=== PATIENT | female | born 1935 | race Caucasian/White ===

== ENCOUNTER 2017-05-13 17:39 | Emergency (ER) | payer MEDICARE, OTHER ==
[2017-05-13 18:21] VITALS: BP 158/72
--- NOTE | 2017-05-13 18:50 | ERPHSYRPT ---
- History of Present Illness Source: patient, family Exam Limitations: no limitations Patient Subjective Stated Complaint: stated has had a persistent dry cough for last 3 to 4 days, clear nasal drng, started having chills last night. unsure if had a fever. decreased appetite Triage Nursing Assessment: Pt ambulated to triage room with steady gait. skin warm, dry, resp easy even with clear breath sounds. clear nasal drng noted. +2 bilat lower extrem edema. Timing/Duration: other (1 month) Cough Quality/Degree: dry cough Possible Cause: no prior episodes Modifying Factors: Improves With: coughing Associated Symptoms: fever, chills, cough, nasal congestion Hx Tetanus, Diphtheria Vaccination/Date Given: No Hx Influenza Vaccination/Date Given: No Hx Pneumococcal Vaccination/Date Given: No <RITU VIVAS - Last Filed: 05/13/17 19:01> <LILY KHOURY - Last Filed: 05/13/17 20:12> - History of Present Illness Time Seen by Provider: 05/13/17 18:42 Physician History: The patient is an 82-year-old female with her complaining of a cough for one month and clear nasal drainage with nasal congestion for one month. For the last 3 days she has had chills and decreased appetite. Her past medical history is significant for hypertension, GERD, and arthritis. (RITU VIVAS) Allergies/Adverse Reactions: No Known Drug Allergies Allergy (Verified 05/13/17 19:50) Home Medications: Meloxicam [Meloxicam] 15 mg PO DAILY 05/13/17 [History] Metoprolol Tartrate 25 mg [Lopressor 25MG Tab] 25 mg PO HS 05/13/17 [ History] Multivitamin/Iron/Folic Acid [Centrum Complete Multivit Tab] 1 each PO DAILY [History] Omeprazole [Omeprazole] 40 mg PO DAILY 05/13/17 [History] Potassium Chloride [Potassium Chloride] 40 meq PO DAILY 05/13/17 [History] Spironolactone 25 mg [Aldactone 25 MG] 25 mg PO HS 05/13/17 [History] - Review of Systems Constitutional: Fever, Chills Eyes: No Symptoms Ears, Nose, & Throat: Nose Congestion Respiratory: Cough Cardiac: No Chest Pain, No Edema, No Syncope Abdominal/Gastrointestinal: No Abdominal Pain, No Nausea, No Vomiting, No Diarrhea Genitourinary Symptoms: No Dysuria Musculoskeletal: No Back Pain, No Neck Pain Skin: No Rash Neurological: No Dizziness, No Focal Weakness, No Sensory Changes Psychological: No Symptoms Endocrine: No Symptoms Hematologic/Lymphatic: No Symptoms Immunological/Allergic: No Symptoms All Other Systems: Reviewed and Negative <RITU VIVAS - Last Filed: 05/13/17 19:01> - Past Medical History Pertinent Past Medical History: Yes Neurological History: TIA ENT History: No Pertinent History Cardiac History: No Pertinent History Respiratory History: Bronchitis Endocrine Medical History: No Pertinent History Musculoskeletal History: Arthritis GI Medical History: No Pertinent History History: No Pertinent History Psycho-Social History: No Pertinent History Female Reproductive Disorders: Breast Cancer - Past Surgical History Past Surgical History: Yes Neuro Surgical History: No Pertinent History Cardiac: No Pertinent History Respiratory: No Pertinent History Gastrointestinal: Other Genitourinary: No Pertinent History Musculoskeletal: No Pertinent History Female Surgical History: Mastectomy Other Surgical History: "bladder surgery" - Social History Smoking Status: Never smoker Exposure to second hand smoke: Yes (in the past) Drug Use: none Patient Lives Alone: No - Female History Hx Now: No <RITU VIVAS - Last Filed: 05/13/17 19:01> - Physical Exam General Appearance: mild distress Eye Exam: PERRL/EOMI, eyes nml inspection Ears, Nose, Throat Exam: normal ENT inspection, TMs normal, pharynx normal, moist mucous membranes Neck Exam: normal inspection, non-tender, supple, full range of motion Respiratory Exam: normal breath sounds, lungs clear, No respiratory distress Cardiovascular Exam: regular rate/rhythm, normal heart sounds Gastrointestinal/Abdomen Exam: soft, No tenderness Pelvic Exam: not done Rectal Exam: not done Back Exam: normal inspection, No CVA tenderness, No vertebral tenderness Extremity Exam: normal inspection, normal range of motion Neurologic Exam: alert, oriented x 3, cooperative, normal mood/affect, sensation nml, No motor deficits Skin Exam: normal color, warm, dry, No rash Lymphatic Exam: No adenopathy SpO2 Interpretation: normal SpO2: 99 Oxygen Delivery: Room Air <RITU VIVAS - Last Filed: 05/13/17 19:01> - Nursing Vital Signs Nursing Vital Signs: Initial Vital Signs Temperature 98.7 F 05/13/17 18:06 Pulse Rate 87 05/13/17 18:06 Respiratory Rate 20 05/13/17 18:06 Blood Pressure 158/72 05/13/17 18:06 O2 Sat by Pulse Oximetry 96 05/13/17 18:06 Pain Scale Pain Intensity 2 - Radiology Exams cxr X-ray Interpretation: Interpreted by me (kyphotic spine), No Fracture <LILY KHOURY - Last Filed: 05/13/17 20:12> Ordered Tests: Active Orders 24 hr Category Date Time Status IV Insertion STAT Care 05/13/17 18:54 Active CHEST 2 VIEWS (PA AND LAT) Stat Exams 05/13/17 18:54 Taken BLOOD CULTURE Stat Lab 05/13/17 19:35 Received CBC W DIFF Stat Lab 05/13/17 19:25 Completed CMP Stat Lab 05/13/17 19:25 Completed Lactic Acid Stat Lab 05/13/17 19:26 Completed MAGNESIUM Stat Lab 05/13/17 19:25 Completed UA W/RFX UR CULTURE Stat Lab 05/13/17 18:54 Ordered Respiratory Nebulizer STAT RT 05/13/17 19:49 Completed Medication Summary Discontinued Medications Generic Name Dose Route Start Last Admin Trade Name Freq PRN Reason Stop Dose Admin Albuterol Sulfate 2.5 mg 05/13/17 19:48 05/13/17 19:59 Proventil 2.5 Mg/3 Ml Neb IH 05/13/17 19:49 2.5 mg STAT ONE Administration Albuterol Sulfate Confirm 05/13/17 19:55 Proventil 2.5 Mg/3 Ml Neb Administered 05/13/17 19:56 Dose 2.5 mg IH .STK-MED ONE Lab/Rad Data: Laboratory Result Diagrams 05/13/17 19:25 05/13/17 19:25 Laboratory Results 05/13/17 05/13/17 05/13/17 Range/Units 19:30 19:26 19:25 WBC (4.0-10.5) K/mm3 RBC (4.1-5.4) M/mm3 Hgb (12.0-16.0) gm/dl Hct (35-47) % MCV (78-100) fl MCH (26-32) pg MCHC (32-36) g/dl RDW (11.5-14.0) % Plt Count (150-450) K/mm3 MPV (6-9.5) fl Gran % (36.0-66.0) % Lymphocytes % (24.0-44.0) % Monocytes % (0.0-12.0) % Eosinophils % (0.00-5.0) % Basophils % (0.0-0.4) % Basophils # (0-0.4) Sodium 133 L (136-145) mEq/L Potassium 4.1 (3.5-5.1) mEq/L Chloride 98 (98-107) mEq/L Carbon Dioxide 24.5 (21-32) mEq/L Anion Gap 14.9 (5-15) MEQ/L BUN 17 (9-20) mg/dL Creatinine 0.93 (0.55-1.30) mg/dl Estimated GFR > 60 ML/MIN Glucose 85 (70-110) MG/DL Lactic Acid 1.0 (0.4-2.0) Calcium 9.2 (8.5-10.1) mg/dL Magnesium 1.9 (1.8-2.4) mg/dL Total Bilirubin 0.40 (0.2-1.0) mg/dL AST 22 (15-37) U/L ALT 17 (12-78) U/L Alkaline Phosphatase 78 (46-116) U/L Serum Total Protein 7.4 (6.4-8.2) gm/dL Albumin 3.7 (3.4-5.0) g/dL Influenza Type A Ag NEGATIVE (NEGATIVE) Influenza Type B Ag NEGATIVE (NEGATIVE) 05/13/17 Range/Units 19:25 WBC 5.2 (4.0-10.5) K/mm3 RBC 4.18 (4.1-5.4) M/mm3 Hgb 12.4 (12.0-16.0) gm/dl Hct 37.8 (35-47) % MCV 90.4 (78-100) fl MCH 29.7 (26-32) pg MCHC 32.8 (32-36) g/dl RDW 12.5 (11.5-14.0) % Plt Count 170 (150-450) K/mm3 MPV 8.8 (6-9.5) fl Gran % 74.1 H (36.0-66.0) % Lymphocytes % 14.7 L (24.0-44.0) % Monocytes % 8.7 (0.0-12.0) % Eosinophils % 2.3 (0.00-5.0) % Basophils % 0.2 (0.0-0.4) % Basophils # 0.01 (0-0.4) Sodium (136-145) mEq/L Potassium (3.5-5.1) mEq/L Chloride (98-107) mEq/L Carbon Dioxide (21-32) mEq/L Anion Gap (5-15) MEQ/L BUN (9-20) mg/dL Creatinine (0.55-1.30) mg/dl Estimated GFR ML/MIN Glucose (70-110) MG/DL Lactic Acid (0.4-2.0) Calcium (8.5-10.1) mg/dL Magnesium (1.8-2.4) mg/dL Total Bilirubin (0.2-1.0) mg/dL AST (15-37) U/L ALT (12-78) U/L Alkaline Phosphatase (46-116) U/L Serum Total Protein (6.4-8.2) gm/dL Albumin (3.4-5.0) g/dL Influenza Type A Ag (NEGATIVE) Influenza Type B Ag (NEGATIVE) <RITU VIVAS - Last Filed: 05/13/17 19:01> - Progress Counseled pt/family regarding: lab results, diagnosis, need for follow-up <LILY KHOURY - Last Filed: 05/13/17 20:12> - Progress Progress Note: 05/13/17 18:53 Pt care discussed and care transferred to Dr Khoury at 19:00. (RITU VIVAS) 05/13/17 19:50 Pt was initially seen per Dr Vivas. She is a former pt of Dr Guillen. She has long standing rhinorrhea. She has cough for 2 days. No fever or chills. No dyspnea. No OGDEN. No chest pain. She tried OTC cold meds. PE: awake, alert. Chest clear without wheeze or rales. Cor reg. Abd soft and NT. O-P clear. CXR negative. 05/13/17 20:09 She was given a local doctor list as she plans to change FMD. Will Rx bronchitis. Rx alb MDI and doxycycline. (LILY KHOURY) <RITU VIVAS - Last Filed: 05/13/17 19:01> - Departure Time of Disposition: 20:10 Departure Disposition: Home Critical Care Time: No <LILY KHOURY - Last Filed: 05/13/17 20:12> - Departure Clinical Impression: Acute bronchitis Condition: Stable Referrals: JAKE PRIDE [Primary Care Provider] - Instructions: Cough -- Adult, Bronchitis Additional Instructions: Rx albuterol inhaler. Rx doxycycline. Follow up next week with a family doctor. Return for difficulty breathing, concerns. Prescriptions: Albuterol Sulfate [Albuterol Sulfate Hfa] 2 puff IH Q4-6HPRN PRN #1 [email or web address] PRN Reason: cough or wheeze Doxycycline Hyclate 100 mg [Vibramycin 100 MG] 1 tab PO BID #20 tab
[2017-05-13 19:43] LABS: BASOPHIL % 0.2 % (0.0-0.4); Basophil (Absolute #) 0.01 (0-0.4); Eosinophil % 2.3 % (0.00-5.0); Eosinophil (Absolute #) 0.12 (0-0.5); Granulocyte Absolute (ANC) 3.82 (1.4-6.9); Granulocytes % 74.1 % (36.0-66.0); Hematocrit 37.8 % (35-47); Hemoglobin 12.4 gm/dl (12.0-16.0); Lymphocyte (Absolute #) 0.76 (1.0-4.6); Lymphocytes % 14.7 % (24.0-44.0); Mean Cell Volume 90.4 fl (78-100); Mean Corpuscular Hemoglobin 29.7 pg (26-32); Mean Corpuscular Hgb Concent. 32.8 g/dl (32-36); Mean Platelet Volume 8.8 fl (6-9.5); Monocyte (Absolute #) 0.45 (0.0-1.3); Monocytes % 8.7 % (0.0-12.0); Platelet Count 170 K/mm3 (150-450); Red Blood Count 4.18 M/mm3 (4.1-5.4); Red Cell Distribution Width 12.5 % (11.5-14.0); White Blood Count 5.2 K/mm3 (4.0-10.5)
[2017-05-13] MEDS ORDERED: PROVENTIL 2.5 MG/3 ML NEB IH ONE ×2 (19:48→19:55)
[2017-05-13 20:06] LABS: ALBUMIN 3.7 g/dL (3.4-5.0); ALKALINE PHOSPHATASE 78 U/L (46-116); ANION GAP 14.9 MEQ/L (5-15); BLOOD UREA NITROGEN 17 mg/dL (9-20); CHLORIDE 98 mEq/L (98-107); Calcium 9.2 mg/dL (8.5-10.1); Carbon Dioxide 24.5 mEq/L (21-32); Creatinine 1 0.93 mg/dl (0.55-1.30); EST GLOMERULAR FILTRATION RATE > 60 ML/MIN; Glucose 85 MG/DL (70-110); MAGNESIUM 1.9 mg/dL (1.8-2.4); Potassium 4.1 mEq/L (3.5-5.1); SGOT/AST 22 U/L (15-37); SGPT/ALT 17 U/L (12-78); SODIUM 133 mEq/L (136-145); Total Protein 7.4 gm/dL (6.4-8.2)
[2017-05-13 20:07] LABS: INFLUENZA A NEGATIVE (NEGATIVE); INFLUENZA B NEGATIVE (NEGATIVE)
[2017-05-13 20:32] LABS: Appearance SLIGHTLY CLOUDY (CLEAR)
[2017-05-13 20:33] LABS: Bacteria MANY /HPF (NEGATIVE); Bilirubin NEGATIVE (NEGATIVE); Blood TRACE NON-HEM Ery/ul (0-5); Epithelial Cells FEW /HPF (FEW); Glucose NEGATIVE (NEGATIVE); Ketones NEGATIVE (NEGATIVE); Leukocyte Esterase 1+ (NEGATIVE); Nitrite POSITIVE (NEGATIVE); Protein,Urine Dip NEGATIVE (Negative); Urobilinogen NORMAL mg/dL (0-1); WBC 15-25 /HPF (0-5)
[2017-05-13 20:36] VITALS: PULSE 70; O2SAT 96
--- NOTE | 2017-05-14 09:09 | XRAY ---
Indication: Cough. Comparison: None PA/lateral chest hyperinflated and clear with incidental scattered calcified granulomas. Heart is not enlarged. Vascularity normal. Bony thorax intact with mild osteopenia and degenerative changes. Impression: Nonacute hyperinflated chest with chronic features.
== END 2017-05-13 20:37 | disposition home or self-care (01) ==
LOC: ED 17:39
DX: J20.9 Acute bronchitis, unspecified (principal); Z79.899 Other long term (current) drug therapy; M19.90 Unspecified osteoarthritis, unspecified site; Z86.73 Personal history of transient ischemic attack (TIA), and cerebral infarction without residual deficits; Z85.3 Personal history of malignant neoplasm of breast; I10 Essential (primary) hypertension; K21.9 Gastro-esophageal reflux disease without esophagitis
CPT/HCPCS: 36000; 36415; 71020; 80053; 81000; 83605; 83735; 85025; 87040; 87077; 87086; 87186; 87400; 94640; 99283; A9270-GY

== ENCOUNTER 2017-12-04 16:21 | Emergency (ER) | payer MEDICARE ==
--- NOTE | 2017-12-04 17:18 | ERPHSYRPT ---
- History of Present Illness Time Seen by Provider: 12/04/17 17:15 Source: patient, family Exam Limitations: no limitations Patient Subjective Stated Complaint: Pt states "I am having pain accross the lower part of my belly and it nevarez when I pee." Triage Nursing Assessment: Pt alert and oriented X 3, skin pwd PT ambulates with a hunched over slow gait. Pt able to speak in clear full sentences. Physician History: The patient is an 82-year-old female with her who complains of suprapubic cramping and burning when she urinates for 2 days. The cramping and pain across her lower abdomen has disappeared before arrival. Now she complains of continued burning with urination. Her past medical history is significant for hypertension, GERD, and asthma. Timing/Duration: day(s) (2), gradual onset, improved Activites at Onset: none Quality: burning (with urination) Pain Radiation: none Severity of Pain-Max: moderate Severity of Pain-Current: mild Prior abdominal problems: none Sexual intercourse history: non-contributory Modifying Factors: Improves With: urinating Associated Symptoms: dysuria Allergies/Adverse Reactions: No Known Drug Allergies Allergy (Verified 05/13/17 19:50) Home Medications: Meloxicam 15 mg PO DAILY 05/13/17 [History] Metoprolol Tartrate 25 mg [Lopressor 25MG Tab] 25 mg PO HS 05/13/17 [ History] Multivitamin/Iron/Folic Acid [Centrum Complete Multivit Tab] 1 each PO DAILY [History] Omeprazole 40 mg PO DAILY 05/13/17 [History] Potassium Chloride 40 meq PO DAILY 05/13/17 [History] Spironolactone 25 mg [Aldactone 25 MG] 25 mg PO HS 05/13/17 [History] Lisinopril 5 mg PO DAILY 12/04/17 [History] Hx Tetanus, Diphtheria Vaccination/Date Given: No Hx Influenza Vaccination/Date Given: No Hx Pneumococcal Vaccination/Date Given: No - Review of Systems Constitutional: No Fever, No Chills Eyes: No Symptoms Ears, Nose, & Throat: No Symptoms Respiratory: No Cough, No Dyspnea Cardiac: No Chest Pain, No Edema, No Syncope Abdominal/Gastrointestinal: Abdominal Pain Genitourinary Symptoms: Dysuria Musculoskeletal: No Back Pain, No Neck Pain Skin: No Rash Neurological: No Dizziness, No Focal Weakness, No Sensory Changes Psychological: No Symptoms Endocrine: No Symptoms Hematologic/Lymphatic: No Symptoms Immunological/Allergic: No Symptoms All Other Systems: Reviewed and Negative - Past Medical History Pertinent Past Medical History: Yes Neurological History: TIA ENT History: No Pertinent History Cardiac History: No Pertinent History Respiratory History: Bronchitis Endocrine Medical History: No Pertinent History Musculoskeletal History: Arthritis GI Medical History: No Pertinent History History: No Pertinent History Psycho-Social History: No Pertinent History Female Reproductive Disorders: Breast Cancer - Past Surgical History Past Surgical History: Yes Neuro Surgical History: No Pertinent History Cardiac: No Pertinent History Respiratory: No Pertinent History Gastrointestinal: Other Genitourinary: No Pertinent History Musculoskeletal: No Pertinent History Female Surgical History: Mastectomy Other Surgical History: "bladder surgery" - Social History Smoking Status: Never smoker Exposure to second hand smoke: Yes Drug Use: none Patient Lives Alone: No - Female History Hx Now: No - Nursing Vital Signs Nursing Vital Signs: Initial Vital Signs Temperature 97.8 F 12/04/17 16:28 Pulse Rate 78 12/04/17 16:28 Respiratory Rate 16 12/04/17 16:28 Blood Pressure 181/88 12/04/17 16:28 O2 Sat by Pulse Oximetry 98 12/04/17 16:28 Pain Scale Pain Intensity 0 - Physical Exam General Appearance: no apparent distress, alert Eye Exam: PERRL/EOMI, eyes nml inspection Ears, Nose, Throat Exam: normal ENT inspection, TMs normal, pharynx normal, moist mucous membranes Neck Exam: normal inspection, non-tender, supple, full range of motion Respiratory Exam: normal breath sounds, lungs clear, No respiratory distress Cardiovascular Exam: regular rate/rhythm, normal heart sounds, normal peripheral pulses Gastrointestinal/Abdomen Exam: soft, No tenderness, No mass Pelvic Exam: not done Rectal Exam: not done Back Exam: normal inspection, normal range of motion, No CVA tenderness, No vertebral tenderness Extremity Exam: normal inspection, normal range of motion, pelvis stable Neurologic Exam: alert, oriented x 3, cooperative, religious healer II-XII nml as tested, normal mood/affect, sensation nml, No motor deficits Skin Exam: normal color, warm, dry Lymphatic Exam: No adenopathy SpO2 Interpretation: normal SpO2: 98 Oxygen Delivery: Room Air Ordered Tests: Active Orders 24 hr Category Date Time Status EKG-ER Only STAT Care 12/04/17 17:25 Active IV Insertion STAT Care 12/04/17 17:18 Active AMYLASE Stat Lab 12/04/17 17:15 Completed BMP Stat Lab 12/04/17 17:15 Completed CBC W DIFF Stat Lab 12/04/17 17:15 Completed CULTURE,URINE Stat Lab 12/04/17 17:25 Received LIPASE Stat Lab 12/04/17 17:15 Completed UA W/ MICROSCOPIC Stat Lab 12/04/17 17:25 Completed Lab/Rad Data: Laboratory Result Diagrams 12/04/17 17:15 12/04/17 17:15 Laboratory Results 12/04/17 12/04/17 12/04/17 Range/Units 17:25 17:15 17:15 WBC 6.3 (4.0-10.5) K/mm3 RBC 4.40 (4.1-5.4) M/mm3 Hgb 13.2 (12.0-16.0) gm/dl Hct 38.9 (35-47) % MCV 88.4 (78-100) fl MCH 30.0 (26-32) pg MCHC 33.9 (32-36) g/dl RDW 13.7 (11.5-14.0) % Plt Count 229 (150-450) K/mm3 MPV 9.4 (6-9.5) fl Gran % 59.1 (36.0-66.0) % Eos # (Auto) 0.23 (0-0.5) Absolute Lymphs (auto) 1.84 (1.0-4.6) Absolute Monos (auto) 0.47 (0.0-1.3) Lymphocytes % 29.4 (24.0-44.0) % Monocytes % 7.5 (0.0-12.0) % Eosinophils % 3.7 (0.00-5.0) % Basophils % 0.3 (0.0-0.4) % Absolute Granulocytes 3.70 (1.4-6.9) Basophils # 0.02 (0-0.4) Sodium 137 (137-145) mmol/L Potassium 3.7 (3.5-5.1) mmol/L Chloride 103 (98-107) mmol/L Carbon Dioxide 26 (22-30) mmol/L Anion Gap 11.4 (5-15) MEQ/L BUN 16 (7-17) mg/dL Creatinine 0.70 (0.52-1.04) mg/dL Estimated GFR > 60.0 ML/MIN Glucose 93 (74-106) mg/dL Calcium 9.2 (8.4-10.2) mg/dL Amylase 48 (30-110) U/L Lipase 103 (23-300) U/L Ur Collection Type VOID Urine Color YELLOW (YELLOW) Urine Appearance CLOUDY (CLEAR) Urine pH 6.5 (5-6) Ur Specific [place] 1.015 (1.005-1.025) Urine Protein TRACE (Negative) Urine Ketones NEGATIVE (NEGATIVE) Urine Blood 250 (0-5) [place]/ul Urine Nitrite NEGATIVE (NEGATIVE) Urine Bilirubin NEGATIVE (NEGATIVE) Urine Urobilinogen NORMAL (0-1) mg/dL Ur Leukocyte Esterase 2+ (NEGATIVE) Urine Microscopic RBC 50-100 (0-2) /HPF Urine Microscopic WBC 15-25 (0-5) /HPF Ur Epithelial Cells FEW (FEW) /HPF Urine Bacteria FEW (NEGATIVE) /HPF Urine Culture Reflexed YES (NO) Urine Glucose NEGATIVE (NEGATIVE) mg/dL Specimen Received 12/04 1730 - Departure Time of Disposition: 19:07 Departure Disposition: Home Clinical Impression: UTI (urinary tract infection) Condition: Stable Critical Care Time: No Referrals: MARIE UREÑA MD [Primary Care Provider] - Prescriptions: Cephalexin Mh 500 mg [Keflex 500 mg] 1 cap PO QID #28 capsule
[2017-12-04 17:25] LABS: BASOPHIL % 0.3 % (0.0-0.4); Basophil (Absolute #) 0.02 (0-0.4); Eosinophil % 3.7 % (0.00-5.0); Eosinophil (Absolute #) 0.23 (0-0.5); Granulocytes % 59.1 % (36.0-66.0); Hematocrit 38.9 % (35-47); Hemoglobin 13.2 gm/dl (12.0-16.0); Lymphocyte (Absolute #) 1.84 (1.0-4.6); Lymphocytes % 29.4 % (24.0-44.0); Mean Cell Volume 88.4 fl (78-100); Mean Corpuscular Hgb Concent. 33.9 g/dl (32-36); Mean Platelet Volume 9.4 fl (6-9.5); Monocyte (Absolute #) 0.47 (0.0-1.3); Monocytes % 7.5 % (0.0-12.0); Platelet Count 229 K/mm3 (150-450); Red Cell Distribution Width 13.7 % (11.5-14.0); White Blood Count 6.3 K/mm3 (4.0-10.5)
[2017-12-04 17:58] LABS: AMYLASE 48 U/L (30-110); ANION GAP 11.4 MEQ/L (5-15); BLOOD UREA NITROGEN 16 mg/dL (7-17); CHLORIDE 103 mmol/L (98-107); Calcium 9.2 mg/dL (8.4-10.2); Carbon Dioxide 26 mmol/L (22-30); Glucose 93 mg/dL (74-106); LIPASE 103 U/L (23-300); Potassium 3.7 mmol/L (3.5-5.1); SODIUM 137 mmol/L (137-145)
[2017-12-04 17:58] LABS: Appearance CLOUDY (CLEAR); Leukocyte Esterase 2+ (NEGATIVE); Ph 6.5 (5-6); Specific Gravity 1.015 (1.005-1.025)
[2017-12-04 17:59] LABS: Bilirubin NEGATIVE (NEGATIVE); Blood 250 Ery/ul (0-5); Glucose NEGATIVE (NEGATIVE); Ketones NEGATIVE (NEGATIVE); Nitrite NEGATIVE (NEGATIVE); Protein,Urine Dip TRACE (Negative); RBC 50-100 /HPF (0-2); Urobilinogen NORMAL mg/dL (0-1); WBC 15-25 /HPF (0-5)
[2017-12-04 18:00] LABS: Bacteria FEW /HPF (NEGATIVE); Epithelial Cells FEW /HPF (FEW)
[2017-12-04] MEDS ORDERED: ROCEPHIN 1 Gm-D5w 50 ml Bag** 1 G/50 ML IVPB IV STA (19:07)
[2017-12-04] MEDS ORDERED: ROCEPHIN 1 Gm-D5w 50 ml Bag** 1 G/50 ML IVPB IV ONE (19:11)
[2017-12-04 19:25] VITALS: BP 182/84; PULSE 68; O2SAT 95
== END 2017-12-04 19:39 | disposition home or self-care (01) ==
LOC: ED 16:21
DX: N39.0 Urinary tract infection, site not specified (principal); Z79.899 Other long term (current) drug therapy
CPT/HCPCS: 36000; 36415; 80048; 81000; 82150; 83690; 85025; 87077; 87086; 87186; 93005; 96365; 99284; J0696

== ENCOUNTER 2019-01-16 16:39 | Emergency (ER) | payer MEDICARE, OTHER ==
[2019-01-16] MEDS ORDERED: Sodium Chloride 0.9% 1000 ML 1,000 ML IV STA ×2 (16:55→18:01)
[2019-01-16] MEDS ORDERED: BABY ASPIRIN 81 MG CHEW PO ONE (16:55)
[2019-01-16] MEDS ORDERED: Pepcid 20 MG VIAL IV ONE ×2 (16:58→17:21)
--- NOTE | 2019-01-16 17:00 | ERPHSYRPT ---
- History of Present Illness Historian: patient Exam Limitations: no limitations Physician History: Chest Pain in the substernal/lower sternal area for the past three days. Burning sensation without radiation Timing/Duration: day(s) (3) Activities at Onset: none Quality: burning Location: substernal, central Chest Pain Radiation: no radiation Severity of Pain-Max: severe Severity of Pain-Current: severe Modifying Factors: Improves With: nothing Associated Symptoms: heartburn, No nausea, No vomiting, No palpitations, No abdominal pain, No shortness of breath, No cough, No hurts to breathe, No diaphoresis, No chills, No fever, No fatigue, No weakness, No swelling/lump in chest, No syncope, No rash, No headache, No dizziness, No edema, No back pain Prior Chest Pain/Cardiac Workup: no prior chest pain Nitro Today/Relief: no nitro taken today Aspirin Treatment Today: no aspirin today Allergies/Adverse Reactions: No Known Drug Allergies Allergy (Verified 01/16/19 17:17) Home Medications: Meloxicam 15 mg PO DAILY 05/13/17 [History] Metoprolol Tartrate 25 mg [Lopressor 25MG Tab] 25 mg PO HS 05/13/17 [ History] Multivitamin/Iron/Folic Acid [Centrum Complete Multivit Tab] 1 each PO DAILY [History] Omeprazole 40 mg PO DAILY 05/13/17 [History] Potassium Chloride 40 meq PO DAILY 05/13/17 [History] Spironolactone 25 mg [Aldactone 25 MG] 25 mg PO HS 05/13/17 [History] Lisinopril 5 mg PO DAILY 12/04/17 [History] Hx Tetanus, Diphtheria Vaccination/Date Given: No Hx Influenza Vaccination/Date Given: No Hx Pneumococcal Vaccination/Date Given: No - Review of Systems Constitutional: No Fever, No Chills Eyes: No Symptoms Ears, Nose, & Throat: No Nose Congestion, No Nose Discharge, No Throat Pain Respiratory: No Cough, No Dyspnea Cardiac: Chest Pain, No Edema, No Syncope Abdominal/Gastrointestinal: No Abdominal Pain, No Nausea, No Vomiting, No Diarrhea, No Constipation, No Hematemesis, No Hematochezia, No Melena Genitourinary Symptoms: No Dysuria Musculoskeletal: No Back Pain, No Neck Pain Skin: No Rash Neurological: No Dizziness, No Focal Weakness, No Sensory Changes Psychological: No Symptoms Endocrine: No Symptoms All Other Systems: Reviewed and Negative - Past Medical History Pertinent Past Medical History: Yes Neurological History: TIA ENT History: No Pertinent History Cardiac History: No Pertinent History Respiratory History: Bronchitis Endocrine Medical History: No Pertinent History Musculoskeletal History: Arthritis GI Medical History: No Pertinent History History: No Pertinent History Psycho-Social History: No Pertinent History Female Reproductive Disorders: Breast Cancer - Past Surgical History Past Surgical History: Yes Neuro Surgical History: No Pertinent History Cardiac: No Pertinent History Respiratory: No Pertinent History Gastrointestinal: Other Genitourinary: No Pertinent History Musculoskeletal: No Pertinent History Female Surgical History: Mastectomy Other Surgical History: "bladder surgery" - Social History Smoking Status: Never smoker Exposure to second hand smoke: Yes Drug Use: none Patient Lives Alone: No - Nursing Vital Signs Nursing Vital Signs: Initial Vital Signs Temperature 97.8 F 01/16/19 16:56 Pulse Rate 74 01/16/19 16:56 Respiratory Rate 22 01/16/19 16:56 Blood Pressure 185/87 01/16/19 16:56 O2 Sat by Pulse Oximetry 100 01/16/19 16:56 Pain Scale Pain Intensity 0 - Physical Exam General Appearance: no apparent distress, alert Eye Exam: PERRL/EOMI, eyes nml inspection Ears, Nose, Throat Exam: normal ENT inspection, moist mucous membranes Neck Exam: normal inspection, non-tender, supple, full range of motion Respiratory Exam: normal breath sounds, lungs clear, No respiratory distress Cardiovascular Exam: regular rate/rhythm, normal heart sounds, normal peripheral pulses, edema, No friction rub Gastrointestinal/Abdomen Exam: soft, No tenderness, No mass, No rebound Back Exam: normal inspection, No CVA tenderness, No vertebral tenderness Extremity Exam: normal inspection, normal range of motion Neurologic Exam: alert, oriented x 3, cooperative, normal mood/affect, sensation nml, No motor deficits Skin Exam: normal color, warm, dry SpO2 Interpretation: normal O2 Delivery: Room Air - Course EKG Interpreted by Me: RATE, Sinus Rhythm, LAFB, Right Bundle Branch Block, NORMAL ST-T Rhythm Strip: Rate (74bpm; no acute change in comparison to EKG fromn 12/04/2017) , 1st degree block, Normal Sinus Rhythm - CT Exams Chest CT Interpretation: Negative, Other (Pre Radiologist Interpretation, hiatal hernia seen, but no pulmonary or cardiac abnormalities; no aneurysm) Abdomen/Pelvis CT Interpretation: Negative, No appendicitis, Other (Per Radiologist, no acute findings; no abdominal aneurysm, no signs of mucosal thickening of small or large bowel; positive hiatal hernia; colonic diverticulosis) - Radiology Ultrasound Exam Venous Lower Extremity Ultrasound: negative, Other (negative for DVT bilaterally) Ordered Tests: Active Orders 24 hr Category Date Time Status Paper Sales Representative STAT Care 01/16/19 16:55 Active EKG-ER Only STAT Care 01/16/19 16:55 Active IV Insertion STAT Care 01/16/19 16:55 Active Pulse Oximetry (ED) STAT Care 01/16/19 16:55 Active Re-Check Vital Signs STAT Care 01/16/19 16:55 Active ABDOMEN AND PELVIS W CONTRAST [CT] Stat Exams 01/16/19 17:59 Taken CHEST WITH CONTRAST [CT] Stat Exams 01/16/19 18:00 Taken VENOUS BILATERAL EXTREMITY [US] Stat Exams 01/16/19 16:57 Completed AMYLASE Stat Lab 01/16/19 17:00 Completed CBC W DIFF Stat Lab 01/16/19 16:55 Completed CK-Creatinine Phosphokinase Stat Lab 01/16/19 17:00 Completed CMP Stat Lab 01/16/19 17:00 Completed LIPASE Stat Lab 01/16/19 17:00 Completed MAGNESIUM Stat Lab 01/16/19 17:00 Completed NT PRO BNP Stat Lab 01/16/19 17:00 Completed PROTIME WITH INR Stat Lab 01/16/19 16:55 Completed PTT Stat Lab 01/16/19 16:55 Completed TROPONIN Q3H Lab 01/16/19 17:00 Completed TROPONIN Q3H Lab 01/16/19 20:14 Completed TROPONIN Q3H Lab 01/16/19 23:00 Ordered TROPONIN Q3H Lab 01/17/19 02:00 Ordered TROPONIN Q3H Lab 01/17/19 05:00 Ordered Urinalysis with Microscopy Stat Lab 01/16/19 20:03 Completed Medication Summary Discontinued Medications Generic Name Dose Route Start Last Admin Trade Name Freq PRN Reason Stop Dose Admin Al Hydrox/Mg Hydrox/Simethicone 20 ml 01/16/19 17:54 01/16/19 17:59 Maalox Es 30 Ml Unit Dose PO 01/16/19 17:55 20 ml STAT ONE Administration Al Hydrox/Mg Hydrox/Simethicone Confirm 01/16/19 17:57 Maalox Es 30 Ml Unit Dose Administered 01/16/19 17:58 Dose 30 ml .ROUTE .STK-MED ONE Aspirin 324 mg 01/16/19 16:55 01/16/19 17:31 Baby Aspirin 81 Mg Chew PO 01/16/19 16:56 324 mg STAT ONE Administration Aspirin Confirm 01/16/19 17:20 Baby Aspirin 81 Mg Chew Administered 01/16/19 17:21 Dose 324 mg .ROUTE .STK-MED ONE Cephalexin HCl 500 mg 01/16/19 20:55 Keflex 500 Mg PO 01/16/19 20:56 STAT ONE Famotidine 20 mg 01/16/19 16:58 01/16/19 17:29 Pepcid 20 Mg Vial IV 01/16/19 16:59 20 mg STAT ONE Administration Famotidine Confirm 01/16/19 17:21 Pepcid 20 Mg Vial Administered 01/16/19 17:22 Dose 20 mg IV .STK-MED ONE Sodium Chloride 1,000 mls @ 999 mls/hr 01/16/19 16:55 01/16/19 19:51 Sodium Chloride 0.9% 1000 Ml IV 01/16/19 17:55 Infused .Q1H1M STA Infusion Sodium Chloride Confirm 01/16/19 17:21 Sodium Chloride 0.9% 1000 Ml Administered 01/16/19 17:22 Dose 1,000 mls @ ud .ROUTE .STK-MED ONE Lab/Rad Data: Laboratory Result Diagrams 01/16/19 16:55 01/16/19 17:00 Laboratory Results 01/16/19 01/16/19 01/16/19 Range/Units 20:14 20:03 17:00 WBC (4.0-10.5) K/mm3 RBC (4.1-5.4) M/mm3 Hgb (12.0-16.0) gm/dl Hct (35-47) % MCV (78-100) fl MCH (26-32) pg MCHC (32-36) g/dl RDW (11.5-14.0) % Plt Count (150-450) K/mm3 MPV (6-9.5) fl Gran % (36.0-66.0) % Eos # (Auto) (0-0.5) Absolute Lymphs (auto) (1.0-4.6) Absolute Monos (auto) (0.0-1.3) Lymphocytes % (24.0-44.0) % Monocytes % (0.0-12.0) % Eosinophils % (0.00-5.0) % Basophils % (0.0-0.4) % Absolute Granulocytes (1.4-6.9) Basophils # (0-0.4) PT (9.95-12.35) SECONDS INR (0.8-3.0) APTT (25.3-37.0) SECONDS Sodium (137-145) mmol/L Potassium (3.5-5.1) mmol/L Chloride (98-107) mmol/L Carbon Dioxide (22-30) mmol/L Anion Gap (5-15) MEQ/L BUN (7-17) mg/dL Creatinine (0.52-1.04) mg/dL Estimated GFR ML/MIN Glucose (74-106) mg/dL Calcium (8.4-10.2) mg/dL Magnesium 1.6 (1.6-2.3) mg/dL Total Bilirubin (0.2-1.3) mg/dL AST (14-36) U/L ALT (0-35) U/L Alkaline Phosphatase (38-126) U/L Creatine Kinase (30-135) U/L Troponin I < 0.012 (0.000-0.034) ng/mL NT-Pro-B Natriuret Pep (0-1800) pg/mL Serum Total Protein (6.3-8.2) g/dL Albumin (3.5-5.0) g/dL Amylase (30-110) U/L Lipase (23-300) U/L Urine Color YELLOW (YELLOW) Urine Appearance CLOUDY (CLEAR) Urine pH 8.0 (5-6) Ur Specific Termo 1.017 (1.005-1.025) Urine Protein NEGATIVE (Negative) Urine Ketones NEGATIVE (NEGATIVE) Urine Blood SMALL (0-5) Benito/ul Urine Nitrite NEGATIVE (NEGATIVE) Urine Bilirubin NEGATIVE (NEGATIVE) Urine Urobilinogen NEGATIVE (0-1) mg/dL Ur Leukocyte Esterase LARGE (NEGATIVE) Urine WBC (Auto) >100 (0-5) /HPF Urine RBC (Auto) 11-15 (0-2) /HPF U Epithel Cells (Auto) NONE (FEW) /HPF Urine Bacteria (Auto) MODERATE (NEGATIVE) /HPF Urine Mucus (Auto) SLIGHT (NEGATIVE) /HPF Urine Glucose NEGATIVE (NEGATIVE) mg/dL 01/16/19 01/16/19 01/16/19 Range/Units 17:00 17:00 17:00 WBC (4.0-10.5) K/mm3 RBC (4.1-5.4) M/mm3 Hgb (12.0-16.0) gm/dl Hct (35-47) % MCV (78-100) fl MCH (26-32) pg MCHC (32-36) g/dl RDW (11.5-14.0) % Plt Count (150-450) K/mm3 MPV (6-9.5) fl Gran % (36.0-66.0) % Eos # (Auto) (0-0.5) Absolute Lymphs (auto) (1.0-4.6) Absolute Monos (auto) (0.0-1.3) Lymphocytes % (24.0-44.0) % Monocytes % (0.0-12.0) % Eosinophils % (0.00-5.0) % Basophils % (0.0-0.4) % Absolute Granulocytes (1.4-6.9) Basophils # (0-0.4) PT (9.95-12.35) SECONDS INR (0.8-3.0) APTT (25.3-37.0) SECONDS Sodium 139 (137-145) mmol/L Potassium 3.4 L (3.5-5.1) mmol/L Chloride 104 (98-107) mmol/L Carbon Dioxide 27 (22-30) mmol/L Anion Gap 12.4 (5-15) MEQ/L BUN 13 (7-17) mg/dL Creatinine 0.69 (0.52-1.04) mg/dL Estimated GFR > 60.0 ML/MIN Glucose 103 (74-106) mg/dL Calcium 10.2 (8.4-10.2) mg/dL Magnesium (1.6-2.3) mg/dL Total Bilirubin 0.40 (0.2-1.3) mg/dL AST 31 (14-36) U/L ALT 15 (0-35) U/L Alkaline Phosphatase 63 (38-126) U/L Creatine Kinase 30 (30-135) U/L Troponin I < 0.012 (0.000-0.034) ng/mL NT-Pro-B Natriuret Pep 262 (0-1800) pg/mL Serum Total Protein 7.7 (6.3-8.2) g/dL Albumin 4.1 (3.5-5.0) g/dL Amylase 70 (30-110) U/L Lipase 75 (23-300) U/L Urine Color (YELLOW) Urine Appearance (CLEAR) Urine pH (5-6) Ur Specific Termo (1.005-1.025) Urine Protein (Negative) Urine Ketones (NEGATIVE) Urine Blood (0-5) Benito/ul Urine Nitrite (NEGATIVE) Urine Bilirubin (NEGATIVE) Urine Urobilinogen (0-1) mg/dL Ur Leukocyte Esterase (NEGATIVE) Urine WBC (Auto) (0-5) /HPF Urine RBC (Auto) (0-2) /HPF U Epithel Cells (Auto) (FEW) /HPF Urine Bacteria (Auto) (NEGATIVE) /HPF Urine Mucus (Auto) (NEGATIVE) /HPF Urine Glucose (NEGATIVE) mg/dL 01/16/19 01/16/19 Range/Units 16:55 16:55 WBC 7.7 (4.0-10.5) K/mm3 RBC 4.26 (4.1-5.4) M/mm3 Hgb 12.7 (12.0-16.0) gm/dl Hct 38.1 (35-47) % MCV 89.4 (78-100) fl MCH 29.8 (26-32) pg MCHC 33.3 (32-36) g/dl RDW 13.3 (11.5-14.0) % Plt Count 224 (150-450) K/mm3 MPV 9.1 (6-9.5) fl Gran % 65.2 (36.0-66.0) % Eos # (Auto) 0.15 (0-0.5) Absolute Lymphs (auto) 1.99 (1.0-4.6) Absolute Monos (auto) 0.53 (0.0-1.3) Lymphocytes % 25.7 (24.0-44.0) % Monocytes % 6.9 (0.0-12.0) % Eosinophils % 1.9 (0.00-5.0) % Basophils % 0.3 (0.0-0.4) % Absolute Granulocytes 5.04 (1.4-6.9) Basophils # 0.02 (0-0.4) PT 13.4 H (9.95-12.35) SECONDS INR 1.18 (0.8-3.0) APTT 34.7 (25.3-37.0) SECONDS Sodium (137-145) mmol/L Potassium (3.5-5.1) mmol/L Chloride (98-107) mmol/L Carbon Dioxide (22-30) mmol/L Anion Gap (5-15) MEQ/L BUN (7-17) mg/dL Creatinine (0.52-1.04) mg/dL Estimated GFR ML/MIN Glucose (74-106) mg/dL Calcium (8.4-10.2) mg/dL Magnesium (1.6-2.3) mg/dL Total Bilirubin (0.2-1.3) mg/dL AST (14-36) U/L ALT (0-35) U/L Alkaline Phosphatase (38-126) U/L Creatine Kinase (30-135) U/L Troponin I (0.000-0.034) ng/mL NT-Pro-B Natriuret Pep (0-1800) pg/mL Serum Total Protein (6.3-8.2) g/dL Albumin (3.5-5.0) g/dL Amylase (30-110) U/L Lipase (23-300) U/L Urine Color (YELLOW) Urine Appearance (CLEAR) Urine pH (5-6) Ur Specific Termo (1.005-1.025) Urine Protein (Negative) Urine Ketones (NEGATIVE) Urine Blood (0-5) Benito/ul Urine Nitrite (NEGATIVE) Urine Bilirubin (NEGATIVE) Urine Urobilinogen (0-1) mg/dL Ur Leukocyte Esterase (NEGATIVE) Urine WBC (Auto) (0-5) /HPF Urine RBC (Auto) (0-2) /HPF U Epithel Cells (Auto) (FEW) /HPF Urine Bacteria (Auto) (NEGATIVE) /HPF Urine Mucus (Auto) (NEGATIVE) /HPF Urine Glucose (NEGATIVE) mg/dL - Progress Progress: unchanged Air Movement: good Progress Note: 01/16/19 17:45 Still had burning sensation in the chest/epigastric area after IV pepcid. Will order Maalox and perform CT Chest/Abd/Pelvis with IV contrast since no specific etiology found with labwork and EKG of her burning chest pain. 01/16/19 19:59 Pain has completely resolved. Patient denies any chest pain, abdominal pain, back pain. 01/16/19 20:58 Patient has no pain in chest, back or abdomen. No pain on repeat abdominal examination - Departure Departure Disposition: Home Clinical Impression: Chest pain due to GERD, Hypokalemia, Hiatal hernia with gastroesophageal reflux , Colon, diverticulosis Acute cystitis Qualifiers: Hematuria presence: without hematuria Qualified Code(s): N30.00 - Acute cystitis without hematuria Hypertension Qualifiers: Hypertension type: essential hypertension Qualified Code(s): I10 - Essential ( primary) hypertension Condition: Good Critical Care Time: No Referrals: MARIE UREÑA MD [Primary Care Provider] - Instructions: Chest Pain, Urinary Tract Infection, Adult (DC), Acid Reflux ( Gastroesophageal Reflux Disease), Adult (DC), Hypokalemia (DC), Hiatal Hernia ( DC), Diverticulosis (DC) Prescriptions: Cephalexin Mh 500 mg [Keflex 500 mg] 500 mg PO TID #15 capsule Omeprazole 20 mg PO QAM #10 capsule.
[2019-01-16] MEDS ORDERED: BABY ASPIRIN 81 MG CHEW ONE (17:20)
[2019-01-16] MEDS ORDERED: Sodium Chloride 0.9% 1000 ML 1,000 ML ONE (17:21)
[2019-01-16 17:30] LABS: BASOPHIL % 0.3 % (0.0-0.4); Basophil (Absolute #) 0.02 (0-0.4); Eosinophil % 1.9 % (0.00-5.0); Eosinophil (Absolute #) 0.15 (0-0.5); Granulocyte Absolute (ANC) 5.04 (1.4-6.9); Granulocytes % 65.2 % (36.0-66.0); Hematocrit 38.1 % (35-47); Hemoglobin 12.7 gm/dl (12.0-16.0); INR 1.18 (0.8-3.0); Lymphocyte (Absolute #) 1.99 (1.0-4.6); Lymphocytes % 25.7 % (24.0-44.0); Mean Cell Volume 89.4 fl (78-100); Mean Corpuscular Hemoglobin 29.8 pg (26-32); Mean Corpuscular Hgb Concent. 33.3 g/dl (32-36); Mean Platelet Volume 9.1 fl (6-9.5); Monocyte (Absolute #) 0.53 (0.0-1.3); Monocytes % 6.9 % (0.0-12.0); PROTIME 13.4 SECONDS (9.95-12.35); Platelet Count 224 K/mm3 (150-450); Red Blood Count 4.26 M/mm3 (4.1-5.4); Red Cell Distribution Width 13.3 % (11.5-14.0); White Blood Count 7.7 K/mm3 (4.0-10.5)
[2019-01-16 17:33] LABS: PTT 34.7 SECONDS (25.3-37.0)
[2019-01-16 17:33] LABS: AMYLASE 70 U/L (30-110); LIPASE 75 U/L (23-300)
[2019-01-16 17:43] LABS: ALBUMIN 4.1 g/dL (3.5-5.0); ALKALINE PHOSPHATASE 63 U/L (38-126); ANION GAP 12.4 MEQ/L (5-15); BLOOD UREA NITROGEN 13 mg/dL (7-17); CHLORIDE 104 mmol/L (98-107); CK-Creatinine Phosphokinase 30 U/L (30-135); Calcium 10.2 mg/dL (8.4-10.2); Carbon Dioxide 27 mmol/L (22-30); Creatinine 1 0.69 mg/dL (0.52-1.04); Glucose 103 mg/dL (74-106); NT PRO BNP 262 pg/mL (0-1800); Potassium 3.4 mmol/L (3.5-5.1); SGOT/AST 31 U/L (14-36); SGPT/ALT 15 U/L (0-35); SODIUM 139 mmol/L (137-145); Total Protein 7.7 g/dL (6.3-8.2)
[2019-01-16] MEDS ORDERED: MAALOX ES 30 ML UNIT DOSE PO ONE (17:54)
[2019-01-16] MEDS ORDERED: MAALOX ES 30 ML UNIT DOSE ONE (17:57)
[2019-01-16 20:17] LABS: Appearance CLOUDY (CLEAR); Bacteria MODERATE /HPF (NEGATIVE); Bilirubin NEGATIVE (NEGATIVE); Blood SMALL Ery/ul (0-5); Glucose NEGATIVE (NEGATIVE); Ketones NEGATIVE (NEGATIVE); Leukocyte Esterase LARGE (NEGATIVE); Mucus SLIGHT /HPF (NEGATIVE); Nitrite NEGATIVE (NEGATIVE); Protein,Urine Dip NEGATIVE (Negative); Specific Gravity 1.017 (1.005-1.025); Urobilinogen NEGATIVE mg/dL (0-1); WBC >100 /HPF (0-5)
--- NOTE | 2019-01-16 20:28 | XRAY ---
Indication: Right lower extremity pain and swelling. 2-dimensional sonogram and color Doppler imaging of the major venous vessels of the left and right leg was performed. Comparison: None No thrombus seen in the examined deep venous vessels of the left and right leg including greater saphenous veins. Veins demonstrate normal compressibility. Venous waveforms are normal with and without augmentation. Impression: Left and right legs negative for DVT. Comment: Preliminary report was given.
[2019-01-16] MEDS ORDERED: KEFLEX 500 MG PO ONE (20:55)
[2019-01-16] MEDS ORDERED: Klor Con 10 MEQ PO ONE ×2 (21:00→21:02)
[2019-01-16] MEDS ORDERED: KEFLEX 500 MG ONE (21:02)
[2019-01-16 21:07] VITALS: BP 178/79; PULSE 74; O2SAT 98
--- NOTE | 2019-01-17 08:44 | XRAY ---
Indication: Chest pain. Multiple contiguous axial images obtained through the chest using 80 cc Isovue 370 contrast. Comparison: None Lungs demonstrate mild bilateral dependent atelectasis. Minimal lingula and left lower lobe fibrosis/scarring. No suspicious pulmonary mass, infiltrate, or effusion. Heart is not enlarged. Aorta is normal in course and caliber. No pathologic mediastinal/hilar lymphadenopathy. Moderate-sized hiatal hernia with partial intrathoracic stomach. Bony thorax intact with osteopenia and mild degenerative changes throughout the spine. Incidental left mastectomy. CT abdomen/pelvis reported separately. Impression: 1. No acute cardiopulmonary abnormalities. 2. Incidental scattered atelectasis/fibrosis/scarring, and hiatal hernia. Comment: Preliminary interpretation was made by C. No critical discrepancy. CT DI 22.81
--- NOTE | 2019-01-17 08:52 | XRAY ---
Indication: Upper abdomen pain. Multiple contiguous axial images obtained through the abdomen and pelvis using 80 cc Isovue 370 contrast only. Comparison: None CT chest reported separately. Noncontrasted stomach and bowel loops appear nonobstructed. Appendix not seen. Scattered descending and sigmoid diverticulosis without diverticulitis. Previous cholecystectomy and hysterectomy. No free fluid/air. Normal visceral enhancement and renal excretion. 4 mm hepatic cyst and 3.2 cm left mid renal cyst. 5 mm nonobstructing right mid renal calculus. Posterior wall of the urinary bladder demonstrates irregular filling defects possibly debris versus bladder mass. Remaining liver, pancreas, spleen, adrenal glands, kidneys, and ureters appear unremarkable. Mild scattered aortoiliac calcifications. No AAA or pathologic retroperitoneal lymphadenopathy. Osseous structures intact with osteopenia and mild/moderate degenerative changes throughout the thoracolumbar spine including 6 mm L4 spondylolisthesis. Impression: 1. Colonic diverticulosis without diverticulitis. 2. Posterior urinary bladder irregular filling defects, possible debris. Urinary bladder mass not completely excluded. 3. Incidental hepatic/left renal cysts and nonobstructing right renal micro-calculus. 4. Osteopenia and multilevel degenerative spondylosis including grade 1-2 L4 spondylolisthesis. Comment: Preliminary interpretation was made by [facility] who does not report hepatic/renal cysts and urinary bladder finding. Telephone report given to Dr. Dale in the ER at 0847 hours on January 17, 2019. CT DI 22.81
== END 2019-01-16 21:49 | disposition home or self-care (01) ==
LOC: ED 16:39
DX: R07.89 Other chest pain (principal); K21.9 Gastro-esophageal reflux disease without esophagitis; E87.6 Hypokalemia; K44.9 Diaphragmatic hernia without obstruction or gangrene; K57.90 Diverticulosis of intestine, part unspecified, without perforation or abscess without bleeding; N30.00 Acute cystitis without hematuria; I10 Essential (primary) hypertension; Z79.899 Other long term (current) drug therapy
CPT/HCPCS: 36000; 36415; 71260; 74177; 80053; 81001; 82150; 82550; 83690; 83735; 83880; 84484; 85025; 85610; 85730; 87077; 87086; 87186; 93005; 93041; 93970; 94760; 96360; 96374; 99285; A9270-GY

== ENCOUNTER 2019-01-17 16:01 | Emergency (ER) | payer MEDICARE ==
[2019-01-17 16:30] VITALS: BP 167/93; PULSE 77; O2SAT 100
--- NOTE | 2019-01-17 19:19 | ERPHSYRPT ---
- History of Present Illness Patient Subjective Stated Complaint: right wrist swelling and painful, rates pain 10/10, denies injuring it Triage Nursing Assessment: Pt brought into the ER via a wheelchair, c/o of right wrist pain, denies injury, hypertensive, rates pain 10/10 Allergies/Adverse Reactions: No Known Drug Allergies Allergy (Verified 01/17/19 16:24) Home Medications: Meloxicam 15 mg PO DAILY 05/13/17 [History] Metoprolol Tartrate 25 mg [Lopressor 25MG Tab] 25 mg PO HS 05/13/17 [ History] Multivitamin/Iron/Folic Acid [Centrum Complete Multivit Tab] 1 each PO DAILY [History] Omeprazole 40 mg PO DAILY 05/13/17 [History] Potassium Chloride 40 meq PO DAILY 05/13/17 [History] Spironolactone 25 mg [Aldactone 25 MG] 25 mg PO HS 05/13/17 [History] Lisinopril 5 mg PO DAILY 12/04/17 [History] Hx Tetanus, Diphtheria Vaccination/Date Given: No Hx Influenza Vaccination/Date Given: No Hx Pneumococcal Vaccination/Date Given: No - Past Medical History Pertinent Past Medical History: Yes Neurological History: TIA ENT History: No Pertinent History Cardiac History: No Pertinent History Respiratory History: Bronchitis Endocrine Medical History: No Pertinent History Musculoskeletal History: Arthritis GI Medical History: No Pertinent History History: No Pertinent History Psycho-Social History: No Pertinent History Female Reproductive Disorders: Breast Cancer - Past Surgical History Past Surgical History: Yes Neuro Surgical History: No Pertinent History Cardiac: No Pertinent History Respiratory: No Pertinent History Gastrointestinal: Other Genitourinary: No Pertinent History Musculoskeletal: No Pertinent History Female Surgical History: Mastectomy Other Surgical History: "bladder surgery" - Social History Smoking Status: Never smoker Exposure to second hand smoke: No Drug Use: none Patient Lives Alone: No - Female History Hx Now: No - Nursing Vital Signs Nursing Vital Signs: Initial Vital Signs Temperature 97.7 F 01/17/19 16:09 Pulse Rate 77 01/17/19 16:09 Blood Pressure 167/93 01/17/19 16:09 O2 Sat by Pulse Oximetry 100 01/17/19 16:09 Pain Scale Pain Intensity 10 - Physical Exam SpO2: 100 Ordered Tests: Active Orders 24 hr Category Date Time Status WRIST (MIN 3 VIEWS) Stat Exams 01/17/19 17:26 Taken - Progress Progress: unchanged, pain not gone completely, re-examined Progress Note: 01/17/19 19:13 I came into ED and in order to help Dr. Dale i helped him by discharging pt. i did not perform h and p. i reviewed dr. bustamante's radiology report. no mention of acute fx. because pt had swelling and pain in distal ulna region, we have placed pt in a wrist splint. i also informed pt of finding on ct abd/pelvis performed last pm of thickened urinary bladder wall. pt is to follow up with pcp for further management of right wrist and urinary bladder wall issue. Counseled pt/family regarding: diagnosis, rad results - Departure Departure Disposition: Home Clinical Impression: Wrist pain Condition: Stable Critical Care Time: No Referrals: MARIE UREÑA MD [Primary Care Provider] - Additional Instructions: wear right wrist splint for comfort. use ice pack 3 times daily for pain control of right wrist pain. follow up with primary doctor for further management of both wrist pain and thickened urinary bladder issue found on yesterdays ct scan of abdomen and pelvis
--- NOTE | 2019-01-17 19:24 | ERPHSYRPT ---
- History of Present Illness Time Seen by Provider: 01/17/19 16:30 Source: patient Exam Limitations: no limitations Patient Subjective Stated Complaint: right wrist swelling and painful, rates pain 10/10, denies injuring it Triage Nursing Assessment: Pt brought into the ER via a wheelchair, c/o of right wrist pain, denies injury, hypertensive, rates pain 10/10 Physician History: Patient in with complaint of R wrist pain, swelling. Uncertain as to when started. Was seen last night for an unrelated problem; chart review of last night encounter by RN does not disclose any report of patient mentioningl the swelling in the right wrist. Occurred: other (unknown) Method of Injury: unknown Quality: other (patient reports the swelling mainly - more so than any injury to the wrist.) Severity of Pain-Max: none Severity of Pain-Current: none Allergies/Adverse Reactions: No Known Drug Allergies Allergy (Verified 01/19/19 02:49) Home Medications: Bumetanide 1 mg [Bumex 1 mg] 1 mg PO DAILY 01/19/19 [History] Lisinopril 10 mg [Zestril 10 MG] 10 mg PO DAILY 01/19/19 [History] Metolazone 2.5 mg [Zaroxolyn 2.5 MG] 2.5 mg PO DAILY 01/19/19 [History] Omeprazole 40 mg PO DAILY 01/19/19 [History] Hx Tetanus, Diphtheria Vaccination/Date Given: No Hx Influenza Vaccination/Date Given: No Hx Pneumococcal Vaccination/Date Given: No - Review of Systems Constitutional: No Symptoms Respiratory: No Symptoms Musculoskeletal: Joint Pain (R wrist - ulnar aspect of distal forearm) Skin: No Symptoms (No ecchymosis at affected area) All Other Systems: Reviewed and Negative - Past Medical History Pertinent Past Medical History: Yes Neurological History: TIA ENT History: No Pertinent History Cardiac History: No Pertinent History Respiratory History: Bronchitis Endocrine Medical History: No Pertinent History Musculoskeletal History: Arthritis GI Medical History: No Pertinent History History: No Pertinent History Psycho-Social History: No Pertinent History Female Reproductive Disorders: Breast Cancer - Past Surgical History Past Surgical History: Yes Neuro Surgical History: No Pertinent History Cardiac: No Pertinent History Respiratory: No Pertinent History Gastrointestinal: Other Genitourinary: No Pertinent History Musculoskeletal: No Pertinent History Female Surgical History: Mastectomy Other Surgical History: "bladder surgery" - Social History Smoking Status: Never smoker Exposure to second hand smoke: No Drug Use: none Patient Lives Alone: No - Female History Hx Now: No - Nursing Vital Signs Nursing Vital Signs: Initial Vital Signs Temperature 97.7 F 01/17/19 16:09 Pulse Rate 77 01/17/19 16:09 Blood Pressure 167/93 01/17/19 16:09 O2 Sat by Pulse Oximetry 100 01/17/19 16:09 Pain Scale Pain Intensity 0 - Physical Exam General Appearance: no apparent distress, alert Shoulder Exam: normal inspection, no evidence of injury, normal ROM Elbow/Forearm Exam: normal inspection, non-tender, no evidence of injury Wrist Exam: deformity (Swelling R distal ulnar aspect ), swelling (noted edema R distal ulna - no erythema), No ecchymosis Hand Exam: normal inspection, non-tender, no evidence of injury Neuro/Tendon Exam: normal sensation, normal motor functions Mental Status Exam: alert, oriented x 3 Skin Exam: normal color, warm, dry, No ecchymosis SpO2 Interpretation: normal SpO2: 100 O2 Delivery: Room Air - Course Nursing assessment & vital signs reviewed: Yes - Radiology Exams Wrist X-ray Interpretation: Interpreted by me (Suspect old FX distal ulna - does not appear to be new; RAD emaniead requested - no comment noted on their reading related to distal ulna/styloid process) - Departure Departure Disposition: Home Clinical Impression: Wrist pain Qualifiers: Laterality: right Qualified Code(s): M25.531 - Pain in right wrist Condition: Stable Critical Care Time: No Referrals: MARIE UREÑA MD [Primary Care Provider] - Instructions: Hand Pain (DC), Carpal Tunnel Exercises Additional Instructions: wear right wrist splint for comfort. use ice pack 3 times daily for pain control of right wrist pain. follow up with primary doctor for further management of both wrist pain and thickened urinary bladder issue found on yesterdays ct scan of abdomen and pelvis
--- NOTE | 2019-01-18 08:37 | XRAY ---
Indication: Ulnar side wrist pain. No known injury. Comparison: None 3 views of the right wrist demonstrates osteopenia, advanced 1st metacarpal trapezium degenerative changes, radioulnar carpal degenerative chondrocalcinosis, and old 5th metacarpal shaft fracture. No other bony, articular, or soft tissue abnormalities.
== END 2019-01-17 19:25 | disposition home or self-care (01) ==
LOC: ED 16:01
DX: M25.531 Pain in right wrist (principal)
CPT/HCPCS: 73110; 99283; L3908

== ENCOUNTER 2019-01-19 02:37 | Inpatient (IN) | payer MEDICARE ==
--- NOTE | 2019-01-19 03:13 | ERPHSYRPT ---
- History of Present Illness Time Seen by Provider: 01/19/19 02:55 Source: patient, family, EMS Exam Limitations: no limitations Patient Subjective Stated Complaint: pt reports she was unable to get off the toilet with assistance of her approx one hour ago. pt states she has a right hand/wrist that is sore. pt states she was able to use the restroom by herself all day but could not get up without help this morning. pt reports recent visits to this ED. Triage Nursing Assessment: pt is aox3, pupils perrl, pt speech is clear, answers questions appropriately, afebrile, resps easy and non labored, wrist splint in place to right lower extremity, cap refill < 3 seconds, sensation intact, pt skin pink warm dry. Physician History: Patient has been having progressively increasing weakness that culminated with patient being unable to get off the toilet by herself this morning prior to coming into the emergency department. Patient's states he can not help take care of her anymore at home by himself. Timing/Duration: day(s) (2) Severity: moderate Character of Deficits: general (difuse) Deficits: decrease ability to stand, decrease ability to walk Baseline/Normal Cognition: alert oriented x 3 Current Cognition: alert oriented x 3 Baseline Gait: walks w/o assistance Associated Symptoms: weakness, No confusion, No fatigue, No fever, No chills, No loss of consciousness, No nausea, No vomiting, No insomnia, No muscle spasms , No numbness/tingling in legs/feet, No paresthesia, No ringing in ears, No seizures, No slurred speech, No trouble walking, No vision changes, No chest pain, No headache Allergies/Adverse Reactions: No Known Drug Allergies Allergy (Verified 01/19/19 02:49) Home Medications: Meloxicam 15 mg PO DAILY 05/13/17 [History] Metoprolol Tartrate 25 mg [Lopressor 25MG Tab] 25 mg PO HS 05/13/17 [ History] Multivitamin/Iron/Folic Acid [Centrum Complete Multivit Tab] 1 each PO DAILY [History] Omeprazole 40 mg PO DAILY 05/13/17 [History] Potassium Chloride 40 meq PO DAILY 05/13/17 [History] Spironolactone 25 mg [Aldactone 25 MG] 25 mg PO HS 05/13/17 [History] Lisinopril 5 mg PO DAILY 12/04/17 [History] Hx Tetanus, Diphtheria Vaccination/Date Given: Yes Hx Influenza Vaccination/Date Given: Yes Hx Pneumococcal Vaccination/Date Given: Yes Immunizations Up to Date: Yes - Review of Systems Constitutional: Weakness, No Fever, No Chills Eyes: No Symptoms, No Eye Pain, No Vision Changes Ears, Nose, & Throat: No Symptoms, No Nose Congestion, No Throat Pain, No Painful Swallowing Respiratory: No Cough, No Dyspnea Cardiac: No Chest Pain, No Edema, No Syncope Abdominal/Gastrointestinal: No Abdominal Pain, No Nausea, No Vomiting, No Diarrhea Genitourinary Symptoms: No Dysuria, No Hematuria, No Flank Pain Musculoskeletal: Other ( states anywhere he touches her causes her pain) , No Back Pain, No Neck Pain Skin: No Rash Neurological: No Dizziness, No Focal Weakness, No Headache, No Sensory Changes, No Tremors Psychological: No Symptoms Endocrine: No Symptoms Hematologic/Lymphatic: No Easy Bleeding, No Easy Bruising All Other Systems: Reviewed and Negative - Past Medical History Pertinent Past Medical History: Yes Neurological History: TIA ENT History: No Pertinent History Cardiac History: No Pertinent History Respiratory History: Bronchitis Endocrine Medical History: No Pertinent History Musculoskeletal History: Arthritis GI Medical History: No Pertinent History History: No Pertinent History Psycho-Social History: No Pertinent History Female Reproductive Disorders: Breast Cancer - Past Surgical History Past Surgical History: Yes Neuro Surgical History: No Pertinent History Cardiac: No Pertinent History Respiratory: No Pertinent History Gastrointestinal: Other Genitourinary: No Pertinent History Musculoskeletal: No Pertinent History Female Surgical History: Mastectomy Other Surgical History: "bladder surgery" - Social History Smoking Status: Never smoker Exposure to second hand smoke: Yes Drug Use: none Patient Lives Alone: No - Female History Hx Now: No - Nursing Vital Signs Nursing Vital Signs: Initial Vital Signs Temperature 97.9 F 01/19/19 02:39 Pulse Rate 70 01/19/19 02:39 Respiratory Rate 20 01/19/19 02:39 Blood Pressure 202/94 01/19/19 02:39 O2 Sat by Pulse Oximetry 97 01/19/19 02:39 Pain Scale Pain Intensity 0 - [place] Coma Scale Best Eye Response ([place]): (4) open spontaneously Best Verbal Response ([place]): (5) oriented Best Motor Response ([place]): (6) obeys commands [place] Total: 15 - Physical Exam General Appearance: no apparent distress, alert Eye Exam: bilateral eye: PERRL, EOMI Ears, Nose, Throat Exam: normal ENT inspection, moist mucous membranes Neck Exam: normal inspection, non-tender, supple Respiratory: normal breath sounds, lungs clear, airway intact, No respiratory distress Cardiovascular: regular rate/rhythm, No edema Gastrointestinal: soft, No tenderness, No distention Back Exam: normal inspection, No CVA tenderness, No vertebral tenderness Extremity Exam: normal inspection, tenderness (at the right hand/wrist), No pedal edema Mental Status: alert, 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 Coordination/Gait: normal finger to nose, normal gait Skin Exam: normal color, warm, dry, No rash SpO2 Interpretation: normal SpO2: 97 O2 Delivery: Room Air - Course EKG Interpreted by Me: RATE (85), Sinus Rhythm (with 1st Degree A-V Block), LAFB , NORMAL INTERVALS, Right Bundle Branch Block, NORMAL ST-T, Other (no change in comparison to EKG from 01/16/2019) Ordered Tests: Active Orders 24 hr Category Date Time Status Diesel Engine Mechanic Apprentice STAT Care 01/19/19 03:05 Active EKG-ER Only STAT Care 01/19/19 03:04 Active IV Insertion STAT Care 01/19/19 03:04 Active CHEST 1 VIEW (PORTABLE) Stat Exams 01/19/19 03:05 Ordered HAND (MINIMUM 3 VIEWS) Stat Exams 01/19/19 03:08 Ordered CBC W DIFF Stat Lab 01/19/19 03:04 Completed CMP Stat Lab 01/19/19 03:04 Completed CULTURE,URINE Stat Lab 01/19/19 03:21 Received Lactic Acid Stat Lab 01/19/19 03:30 Completed MAGNESIUM Stat Lab 01/19/19 03:04 Completed NT PRO BNP Stat Lab 01/19/19 03:04 Completed PROTIME WITH INR Stat Lab 01/19/19 03:04 Completed PTT Stat Lab 01/19/19 03:04 Completed TROPONIN Q3H Lab 01/19/19 03:15 Completed TROPONIN Q3H Lab 01/19/19 06:15 Ordered TROPONIN Q3H Lab 01/19/19 09:15 Ordered TROPONIN Q3H Lab 01/19/19 12:15 Ordered TROPONIN Q3H Lab 01/19/19 15:15 Ordered UA W/RFX UR CULTURE Stat Lab 01/19/19 03:21 Completed VENOUS BLOOD GAS Stat Lab 01/19/19 03:30 Completed Medication Summary Discontinued Medications Generic Name Dose Route Start Last Admin Trade Name Geovannyq PRN Reason Stop Dose Admin Ceftriaxone Sodium/Dextrose 1 g in 50 mls @ 100 mls/hr 01/19/19 04:10 05:27 Rocephin 1 Gm-D5w 50 Ml Bag IV 01/19/19 04:39 Infused STAT STA Infusion Ceftriaxone Sodium/Dextrose Confirm 01/19/19 04:21 Rocephin 1 Gm-D5w 50 Ml Bag Administered 01/19/19 04:22 Dose 1 g in 50 mls @ ud IV .STK-MED ONE Labetalol HCl 10 mg 01/19/19 04:11 01/19/19 05:14 Trandate 100 Mg/20 Ml Mdv For Drip IV 01/19/19 04:12 Not Given ONCE ONE Labetalol HCl 10 mg 01/19/19 04:22 01/19/19 05:08 Trandate 20 Mg/5 Ml Syringe IV 01/19/19 04:23 10 mg STAT ONE Administration Labetalol HCl Confirm 01/19/19 05:07 Trandate 100 Mg/20 Ml Mdv For Drip Administered 01/19/19 05:08 Dose 100 mg IV .STK-MED ONE Potassium Chloride 40 meq 01/19/19 05:50 01/19/19 06:01 Klor Con 10 Meq PO 01/19/19 05:51 40 meq STAT ONE Administration Lab/Rad Data: Laboratory Result Diagrams 01/19/19 03:04 01/19/19 03:04 Laboratory Results 01/19/19 01/19/19 01/19/19 Range/Units 03:30 03:21 03:15 WBC (4.0-10.5) K/mm3 RBC (4.1-5.4) M/mm3 Hgb (12.0-16.0) gm/dl Hct (35-47) % MCV (78-100) fl MCH (26-32) pg MCHC (32-36) g/dl RDW (11.5-14.0) % Plt Count (150-450) K/mm3 MPV (6-9.5) fl Gran % (36.0-66.0) % Eos # (Auto) (0-0.5) Absolute Lymphs (auto) (1.0-4.6) Absolute Monos (auto) (0.0-1.3) Lymphocytes % (24.0-44.0) % Monocytes % (0.0-12.0) % Eosinophils % (0.00-5.0) % Basophils % (0.0-0.4) % Absolute Granulocytes (1.4-6.9) Basophils # (0-0.4) PT (9.95-12.35) SECONDS INR (0.8-3.0) APTT (25.3-37.0) SECONDS pO2/FiO2 Ratio 21.0 % VBG pH 7.50 H (7.32-7.42) VBG pCO2 at Pat Temp 25 L (42-55) mm/Hg VBG pO2 at Pat Temp 68 H (25-40) mm/Hg VBG HCO3 19.5 L (22-28) meq/L VBG O2 Sat (Emani) 97.3 (95-100) VBG Base Excess -2.1 L (-2.0-2.0) VBG Hemoglobin 13.8 VBG Carboxyhemoglobin 2.4 (0.0-6.9) % T HGB POC Potassium 3.1 L (3.5-5.1) Sodium (137-145) mmol/L Potassium (3.5-5.1) mmol/L Chloride (98-107) mmol/L Carbon Dioxide (22-30) mmol/L Anion Gap (5-15) MEQ/L BUN (7-17) mg/dL Creatinine (0.52-1.04) mg/dL Estimated GFR ML/MIN Glucose (74-106) mg/dL Lactic Acid 0.9 (0.4-2.0) Calcium (8.4-10.2) mg/dL Magnesium (1.6-2.3) mg/dL Total Bilirubin (0.2-1.3) mg/dL AST (14-36) U/L ALT (0-35) U/L Alkaline Phosphatase (38-126) U/L Troponin I 0.015 (0.000-0.034) ng/mL NT-Pro-B Natriuret Pep (0-1800) pg/mL Serum Total Protein (6.3-8.2) g/dL Albumin (3.5-5.0) g/dL Urine Color YELLOW (YELLOW) Urine Appearance CLOUDY (CLEAR) Urine pH 7.0 (5-6) Ur Specific [place] 1.012 (1.005-1.025) Urine Protein 100 (Negative) Urine Ketones MODERATE (NEGATIVE) Urine Blood SMALL (0-5) [place]/ul Urine Nitrite NEGATIVE (NEGATIVE) Urine Bilirubin NEGATIVE (NEGATIVE) Urine Urobilinogen NEGATIVE (0-1) mg/dL Ur Leukocyte Esterase LARGE (NEGATIVE) Urine WBC (Auto) >100 (0-5) /HPF Urine RBC (Auto) 6-10 (0-2) /HPF U Epithel Cells (Auto) RARE (FEW) /HPF Urine Bacteria (Auto) NONE (NEGATIVE) /HPF Urine Mucus (Auto) SLIGHT (NEGATIVE) /HPF Urine Culture Reflexed YES (NO) Urine Glucose NEGATIVE (NEGATIVE) mg/dL Slides for Path Review 01/19/19 01/19/19 01/19/19 Range/Units 03:04 03:04 03:04 WBC 9.7 (4.0-10.5) K/mm3 RBC 4.35 (4.1-5.4) M/mm3 Hgb 13.1 (12.0-16.0) gm/dl Hct 38.4 (35-47) % MCV 88.3 (78-100) fl MCH 30.1 (26-32) pg MCHC 34.1 (32-36) g/dl RDW 13.5 (11.5-14.0) % Plt Count 182 (150-450) K/mm3 MPV 9.0 (6-9.5) fl Gran % 78.4 H (36.0-66.0) % Eos # (Auto) 0.04 (0-0.5) Absolute Lymphs (auto) 1.37 (1.0-4.6) Absolute Monos (auto) 0.67 (0.0-1.3) Lymphocytes % 14.2 L (24.0-44.0) % Monocytes % 6.9 (0.0-12.0) % Eosinophils % 0.4 (0.00-5.0) % Basophils % 0.1 (0.0-0.4) % Absolute Granulocytes 7.57 H (1.4-6.9) Basophils # 0.01 (0-0.4) PT 14.4 H (9.95-12.35) SECONDS INR 1.27 (0.8-3.0) APTT 41.3 H (25.3-37.0) SECONDS pO2/FiO2 Ratio % VBG pH (7.32-7.42) VBG pCO2 at Pat Temp (42-55) mm/Hg VBG pO2 at Pat Temp (25-40) mm/Hg VBG HCO3 (22-28) meq/L VBG O2 Sat (Emani) (95-100) VBG Base Excess (-2.0-2.0) VBG Hemoglobin VBG Carboxyhemoglobin (0.0-6.9) % T HGB POC Potassium (3.5-5.1) Sodium 135 L (137-145) mmol/L Potassium 3.3 L (3.5-5.1) mmol/L Chloride 105 (98-107) mmol/L Carbon Dioxide 19 L (22-30) mmol/L Anion Gap 14.2 (5-15) MEQ/L BUN 12 (7-17) mg/dL Creatinine 0.56 (0.52-1.04) mg/dL Estimated GFR > 60.0 ML/MIN Glucose 121 H (74-106) mg/dL Lactic Acid (0.4-2.0) Calcium 9.5 (8.4-10.2) mg/dL Magnesium 1.7 (1.6-2.3) mg/dL Total Bilirubin 1.30 (0.2-1.3) mg/dL AST 27 (14-36) U/L ALT 14 (0-35) U/L Alkaline Phosphatase 75 (38-126) U/L Troponin I (0.000-0.034) ng/mL NT-Pro-B Natriuret Pep 1130 (0-1800) pg/mL Serum Total Protein 8.0 (6.3-8.2) g/dL Albumin 4.2 (3.5-5.0) g/dL Urine Color (YELLOW) Urine Appearance (CLEAR) Urine pH (5-6) Ur Specific [place] (1.005-1.025) Urine Protein (Negative) Urine Ketones (NEGATIVE) Urine Blood (0-5) [place]/ul Urine Nitrite (NEGATIVE) Urine Bilirubin (NEGATIVE) Urine Urobilinogen (0-1) mg/dL Ur Leukocyte Esterase (NEGATIVE) Urine WBC (Auto) (0-5) /HPF Urine RBC (Auto) (0-2) /HPF U Epithel Cells (Auto) (FEW) /HPF Urine Bacteria (Auto) (NEGATIVE) /HPF Urine Mucus (Auto) (NEGATIVE) /HPF Urine Culture Reflexed (NO) Urine Glucose (NEGATIVE) mg/dL Slides for Path Review NO - Progress Progress: unchanged Progress Note: 01/19/19 06:03 Discussed the case with Dr Ureña, hospitalist/patient's physician. Patient will be admitted to the hospital to Dr Ureña's service. Patient's blood pressure improved after IV medication. Discussed with .: Bhavya Will see patient in: hospital (full admit) Counseled pt/family regarding: lab results, diagnosis, need for follow-up, rad results - Departure Departure Disposition: Home, In-patient Admission Clinical Impression: Hypertensive urgency, Dehydration, Hypokalemia, Generalized weakness UTI (urinary tract infection) Qualifiers: Indwelling urinary catheter type: unspecified Encounter type: initial encounter Condition: Fair Critical Care Time: No Referrals: MARIE UREÑA MD [Primary Care Provider] -
[2019-01-19 03:39] LABS: BASOPHIL % 0.1 % (0.0-0.4); Basophil (Absolute #) 0.01 (0-0.4); Eosinophil % 0.4 % (0.00-5.0); Eosinophil (Absolute #) 0.04 (0-0.5); Granulocyte Absolute (ANC) 7.57 (1.4-6.9); Granulocytes % 78.4 % (36.0-66.0); Hematocrit 38.4 % (35-47); Hemoglobin 13.1 gm/dl (12.0-16.0); Lymphocyte (Absolute #) 1.37 (1.0-4.6); Lymphocytes % 14.2 % (24.0-44.0); Mean Cell Volume 88.3 fl (78-100); Mean Corpuscular Hemoglobin 30.1 pg (26-32); Mean Corpuscular Hgb Concent. 34.1 g/dl (32-36); Monocyte (Absolute #) 0.67 (0.0-1.3); Monocytes % 6.9 % (0.0-12.0); Platelet Count 182 K/mm3 (150-450); Red Blood Count 4.35 M/mm3 (4.1-5.4); Red Cell Distribution Width 13.5 % (11.5-14.0); White Blood Count 9.7 K/mm3 (4.0-10.5)
[2019-01-19 03:39] LABS: Lactic Acid 0.9 (0.4-2.0); VBG BASE EXCESS -2.1 (-2.0-2.0); VBG CARBOXYHEMOGLOBIN 2.4 % T HGB (0.0-6.9); VBG HCO3- 19.5 meq/L (22-28); VBG HEMOGLOBIN 13.8; VBG O2 SATURATION 97.3 (95-100); VBG POTASSIUM 3.1 (3.5-5.1); VBG pH 7.5 (7.32-7.42)
[2019-01-19 03:52] LABS: INR 1.27 (0.8-3.0); PROTIME 14.4 SECONDS (9.95-12.35)
[2019-01-19 03:54] LABS: PTT 41.3 SECONDS (25.3-37.0); Slide Review 1 NO
[2019-01-19 03:56] LABS: Appearance CLOUDY (CLEAR); Bilirubin NEGATIVE (NEGATIVE); Blood SMALL Ery/ul (0-5); Epithelial Cells RARE /HPF (FEW); Glucose NEGATIVE (NEGATIVE); Ketones MODERATE (NEGATIVE); Leukocyte Esterase LARGE (NEGATIVE); Mucus SLIGHT /HPF (NEGATIVE); Nitrite NEGATIVE (NEGATIVE); Protein,Urine Dip 100 (Negative); Specific Gravity 1.012 (1.005-1.025); Urobilinogen NEGATIVE mg/dL (0-1); WBC >100 /HPF (0-5)
[2019-01-19] MEDS ORDERED: ROCEPHIN 1 Gm-D5w 50 ml Bag** 1 G/50 ML IVPB IV STA (04:10)
[2019-01-19] MEDS ORDERED: TRANDATE 100 MG/20 ML MDV FOR DRIP IV ONE ×2 (04:11→05:07)
[2019-01-19] MEDS ORDERED: ROCEPHIN 1 Gm-D5w 50 ml Bag** 1 G/50 ML IVPB IV ONE (04:21)
[2019-01-19] MEDS ORDERED: TRANDATE 20 MG/5 ML SYRINGE IV ONE (04:22)
[2019-01-19 04:31] LABS: ALBUMIN 4.2 g/dL (3.5-5.0); ALKALINE PHOSPHATASE 75 U/L (38-126); ANION GAP 14.2 MEQ/L (5-15); BLOOD UREA NITROGEN 12 mg/dL (7-17); CHLORIDE 105 mmol/L (98-107); Calcium 9.5 mg/dL (8.4-10.2); Carbon Dioxide 19 mmol/L (22-30); Creatinine 1 0.56 mg/dL (0.52-1.04); Glucose 121 mg/dL (74-106); MAGNESIUM 1.7 mg/dL (1.6-2.3); NT PRO BNP 1130 pg/mL (0-1800); Potassium 3.3 mmol/L (3.5-5.1); SGOT/AST 27 U/L (14-36); SGPT/ALT 14 U/L (0-35); SODIUM 135 mmol/L (137-145)
[2019-01-19] MEDS ORDERED: Klor Con 10 MEQ PO ONE (05:50)
[2019-01-19] MEDS ORDERED: Colace 100 MG PO PRN (06:35)
[2019-01-19] MEDS ORDERED: TYLENOL 325 MG PO PRN (06:35)
[2019-01-19] MEDS: Sodium Chloride 0.9% 1000 ML 1,000 ML IV SCH ×2 (08:14→17:33)
--- NOTE | 2019-01-19 09:09 | XRAY ---
Indication: Weakness. Comparison: May 13, 2017. Portable chest demonstrates normal heart and lungs. Bony thorax intact again with mild osteopenia and degenerative changes. No new/acute findings.
--- NOTE | 2019-01-19 09:11 | XRAY ---
Indication: Pain. Comparison: None 3 views of the right hand demonstrates osteopenia, mild degenerative changes all IP joints, advanced degenerative changes base 1st metacarpal, moderate radioulnar carpal degenerative changes, and old 5th metacarpal fracture. No other bony, articular, or soft tissue abnormalities.
[2019-01-19] MEDS: ENOXAPARIN SODIUM SQ SCH (09:36)
[2019-01-19] MEDS: Pepcid 20 MG PO SCH ×2 (09:36→19:47)
--- NOTE | 2019-01-19 11:10 | PCM.HP ---
History of Present Illness - Chief Complaint Chief Complaint: c/o weakness and fall at home History of Present Illness: is a 83 year old female.Patient has been having progressively increasing weakness that culminated with patient being unable to get off the toilet by herself this morning prior to coming into the emergency department. Patient's states he can not help take care of her anymore at home by himself. Timing/Duration: day(s) (2) Severity: moderate Character of Deficits: general (difuse) Deficits: decrease ability to stand, decrease ability to walk Baseline/Normal Cognition: alert oriented x 3 Current Cognition: alert oriented x 3 Baseline Gait: walks w/o assistance Associated Symptoms: weakness, No confusion, No fatigue, No fever, No chills, No loss of consciousness, No nausea, No vomiting, No insomnia, No muscle spasms , No numbness/tingling in legs/feet, No paresthesia, No ringing in ears, No seizures, No slurred speech, No trouble walking, No vision changes, No chest pain, No headache - Review of Systems Constitutional: Weakness, No Fever, No Chills Eyes: No Symptoms Ears, Nose, & Throat: No Symptoms Respiratory: No Cough, No Short Of Breath Cardiac: No Chest Pain, No Edema, No Syncope Abdominal/Gastrointestinal: No Abdominal Pain, No Nausea, No Vomiting, No Diarrhea Genitourinary Symptoms: Dysuria, Frequency, Hesitancy, Urgency Musculoskeletal: Fall, No Back Pain, No Neck Pain Skin: No Rash Neurological: No Dizziness, No Focal Weakness, No Sensory Changes Psychological: No Symptoms Endocrine: No Symptoms Hematologic/Lymphatic: No Symptoms Immunological/Allergic: No Symptoms Medications & Allergies Home Medications: Home Medication List Bumetanide 1 mg [Bumex 1 mg] 1 mg PO DAILY 01/19/19 [History Confirmed 10/02] Lisinopril 10 mg [Zestril 10 MG] 10 mg PO DAILY 01/19/19 [History Confirmed 01/19/19] Metolazone 2.5 mg [Zaroxolyn 2.5 MG] 2.5 mg PO DAILY 01/19/19 [History Confirmed 01/19/19] Omeprazole 40 mg PO DAILY 01/19/19 [History Confirmed 01/19/19] Allergies/Adverse Reactions: Allergies Allergy/AdvReac Type Severity Reaction Status Date / Time No Known Drug Allergies Allergy Verified 01/19/19 02:49 - Past Medical History Past Medical History: Yes Neurological History: TIA ENT History: No Pertinent History Cardiac History: No Pertinent History Respiratory History: Bronchitis Endocrine Medical History: No Pertinent History Musculoskelatal History: Arthritis GI Medical History: No Pertinent History History: No Pertinent History Pyscho-Social History: No Pertinent History Reproductive Disorders: Breast Cancer Comment: Patient is a poor historian. - Female History Are you now?: No - Past Surgical History Past Surgical History: Yes Neuro Surgical History: No Pertinent History Cardiac History: No Pertinent History Respiratory Surgery: No Pertinent History GI Surgical History: Other Genitourinary Surgical Hx: No Pertinent History Musculskeletal Surgical Hx: No Pertinent History Female Surgical History: Mastectomy Other Surgical History: "bladder surgery". Pt is poor historian - Social History Smoking Status: Never smoker Exposure to second hand smoke: No Alcohol: None Drug Use: none - Physical Exam Vital Signs: Vital Signs - 24 hr Temp Pulse Resp BP Pulse Ox 01/19/19 08:00 93 L 01/19/19 07:37 98.7 F 83 18 180/82 94 L 01/19/19 06:35 98.7 F 83 18 180/82 94 L 01/19/19 06:10 81 18 154/75 100 01/19/19 06:07 97 01/19/19 05:40 80 19 151/72 99 01/19/19 04:50 85 20 193/87 96 01/19/19 04:00 86 20 190/116 97 01/19/19 03:00 90 22 211/107 99 01/19/19 02:39 97.9 F 70 20 202/94 97 General Appearance: mild distress, alert Neurologic Exam: alert, oriented x 3, cooperative, sensation nml, No motor deficits Eye Exam: PERRL/EOMI, eyes nml inspection Ears, Nose, Throat Exam: normal ENT inspection, TMs normal, pharynx normal, moist mucous membranes Neck Exam: normal inspection, non-tender, supple, full range of motion Respiratory Exam: normal breath sounds, lungs clear, No respiratory distress Cardiovascular Exam: regular rate/rhythm, normal heart sounds, normal peripheral pulses Gastrointestinal/Abdomen Exam: soft, normal bowel sounds, No tenderness, No mass Back Exam: normal inspection, decreased range of motion, No CVA tenderness, No vertebral tenderness Extremity Exam: normal inspection, normal range of motion, pelvis stable Skin Exam: normal color, warm, dry, No rash Lymphatic Exam: No adenopathy Results - Labs Lab/Micro Results: Lab Results-Last 24 Hours 01/19/19 01/19/19 01/19/19 Range/Units 03:04 03:04 03:04 WBC 9.7 (4.0-10.5) K/mm3 RBC 4.35 (4.1-5.4) M/mm3 Hgb 13.1 (12.0-16.0) gm/dl Hct 38.4 (35-47) % MCV 88.3 (78-100) fl MCH 30.1 (26-32) pg MCHC 34.1 (32-36) g/dl RDW 13.5 (11.5-14.0) % Plt Count 182 (150-450) K/mm3 MPV 9.0 (6-9.5) fl Gran % 78.4 H (36.0-66.0) % Eos # (Auto) 0.04 (0-0.5) Absolute Lymphs (auto) 1.37 (1.0-4.6) Absolute Monos (auto) 0.67 (0.0-1.3) Lymphocytes % 14.2 L (24.0-44.0) % Monocytes % 6.9 (0.0-12.0) % Eosinophils % 0.4 (0.00-5.0) % Basophils % 0.1 (0.0-0.4) % Absolute Granulocytes 7.57 H (1.4-6.9) Basophils # 0.01 (0-0.4) PT 14.4 H (9.95-12.35) SECONDS INR 1.27 (0.8-3.0) APTT 41.3 H (25.3-37.0) SECONDS pO2/FiO2 Ratio % VBG pH (7.32-7.42) VBG pCO2 at Pat Temp (42-55) mm/Hg VBG pO2 at Pat Temp (25-40) mm/Hg VBG HCO3 (22-28) meq/L VBG O2 Sat (Emani) (95-100) VBG Base Excess (-2.0-2.0) VBG Hemoglobin VBG Carboxyhemoglobin (0.0-6.9) % T HGB POC Potassium (3.5-5.1) Sodium 135 L (137-145) mmol/L Potassium 3.3 L (3.5-5.1) mmol/L Chloride 105 (98-107) mmol/L Carbon Dioxide 19 L (22-30) mmol/L Anion Gap 14.2 (5-15) MEQ/L BUN 12 (7-17) mg/dL Creatinine 0.56 (0.52-1.04) mg/dL Estimated GFR > 60.0 ML/MIN Glucose 121 H (74-106) mg/dL Lactic Acid (0.4-2.0) Calcium 9.5 (8.4-10.2) mg/dL Magnesium 1.7 (1.6-2.3) mg/dL Total Bilirubin 1.30 (0.2-1.3) mg/dL AST 27 (14-36) U/L ALT 14 (0-35) U/L Alkaline Phosphatase 75 (38-126) U/L Troponin I (0.000-0.034) ng/mL NT-Pro-B Natriuret Pep 1130 (0-1800) pg/mL Serum Total Protein 8.0 (6.3-8.2) g/dL Albumin 4.2 (3.5-5.0) g/dL Urine Color (YELLOW) Urine Appearance (CLEAR) Urine pH (5-6) Ur Specific [place] (1.005-1.025) Urine Protein (Negative) Urine Ketones (NEGATIVE) Urine Blood (0-5) [place]/ul Urine Nitrite (NEGATIVE) Urine Bilirubin (NEGATIVE) Urine Urobilinogen (0-1) mg/dL Ur Leukocyte Esterase (NEGATIVE) Urine WBC (Auto) (0-5) /HPF Urine RBC (Auto) (0-2) /HPF U Epithel Cells (Auto) (FEW) /HPF Urine Bacteria (Auto) (NEGATIVE) /HPF Urine Mucus (Auto) (NEGATIVE) /HPF Urine Culture Reflexed (NO) Urine Glucose (NEGATIVE) mg/dL Slides for Path Review NO 01/19/19 01/19/19 01/19/19 Range/Units 03:15 03:21 03:30 WBC (4.0-10.5) K/mm3 RBC (4.1-5.4) M/mm3 Hgb (12.0-16.0) gm/dl Hct (35-47) % MCV (78-100) fl MCH (26-32) pg MCHC (32-36) g/dl RDW (11.5-14.0) % Plt Count (150-450) K/mm3 MPV (6-9.5) fl Gran % (36.0-66.0) % Eos # (Auto) (0-0.5) Absolute Lymphs (auto) (1.0-4.6) Absolute Monos (auto) (0.0-1.3) Lymphocytes % (24.0-44.0) % Monocytes % (0.0-12.0) % Eosinophils % (0.00-5.0) % Basophils % (0.0-0.4) % Absolute Granulocytes (1.4-6.9) Basophils # (0-0.4) PT (9.95-12.35) SECONDS INR (0.8-3.0) APTT (25.3-37.0) SECONDS pO2/FiO2 Ratio 21.0 % VBG pH 7.50 H (7.32-7.42) VBG pCO2 at Pat Temp 25 L (42-55) mm/Hg VBG pO2 at Pat Temp 68 H (25-40) mm/Hg VBG HCO3 19.5 L (22-28) meq/L VBG O2 Sat (Emani) 97.3 (95-100) VBG Base Excess -2.1 L (-2.0-2.0) VBG Hemoglobin 13.8 VBG Carboxyhemoglobin 2.4 (0.0-6.9) % T HGB POC Potassium 3.1 L (3.5-5.1) Sodium (137-145) mmol/L Potassium (3.5-5.1) mmol/L Chloride (98-107) mmol/L Carbon Dioxide (22-30) mmol/L Anion Gap (5-15) MEQ/L BUN (7-17) mg/dL Creatinine (0.52-1.04) mg/dL Estimated GFR ML/MIN Glucose (74-106) mg/dL Lactic Acid 0.9 (0.4-2.0) Calcium (8.4-10.2) mg/dL Magnesium (1.6-2.3) mg/dL Total Bilirubin (0.2-1.3) mg/dL AST (14-36) U/L ALT (0-35) U/L Alkaline Phosphatase (38-126) U/L Troponin I 0.015 (0.000-0.034) ng/mL NT-Pro-B Natriuret Pep (0-1800) pg/mL Serum Total Protein (6.3-8.2) g/dL Albumin (3.5-5.0) g/dL Urine Color YELLOW (YELLOW) Urine Appearance CLOUDY (CLEAR) Urine pH 7.0 (5-6) Ur Specific [place] 1.012 (1.005-1.025) Urine Protein 100 (Negative) Urine Ketones MODERATE (NEGATIVE) Urine Blood SMALL (0-5) Benito/ul Urine Nitrite NEGATIVE (NEGATIVE) Urine Bilirubin NEGATIVE (NEGATIVE) Urine Urobilinogen NEGATIVE (0-1) mg/dL Ur Leukocyte Esterase LARGE (NEGATIVE) Urine WBC (Auto) >100 (0-5) /HPF Urine RBC (Auto) 6-10 (0-2) /HPF U Epithel Cells (Auto) RARE (FEW) /HPF Urine Bacteria (Auto) NONE (NEGATIVE) /HPF Urine Mucus (Auto) SLIGHT (NEGATIVE) /HPF Urine Culture Reflexed YES (NO) Urine Glucose NEGATIVE (NEGATIVE) mg/dL Slides for Path Review 01/19/19 01/19/19 Range/Units 06:24 09:15 WBC (4.0-10.5) K/mm3 RBC (4.1-5.4) M/mm3 Hgb (12.0-16.0) gm/dl Hct (35-47) % MCV (78-100) fl MCH (26-32) pg MCHC (32-36) g/dl RDW (11.5-14.0) % Plt Count (150-450) K/mm3 MPV (6-9.5) fl Gran % (36.0-66.0) % Eos # (Auto) (0-0.5) Absolute Lymphs (auto) (1.0-4.6) Absolute Monos (auto) (0.0-1.3) Lymphocytes % (24.0-44.0) % Monocytes % (0.0-12.0) % Eosinophils % (0.00-5.0) % Basophils % (0.0-0.4) % Absolute Granulocytes (1.4-6.9) Basophils # (0-0.4) PT (9.95-12.35) SECONDS INR (0.8-3.0) APTT (25.3-37.0) SECONDS pO2/FiO2 Ratio % VBG pH (7.32-7.42) VBG pCO2 at Pat Temp (42-55) mm/Hg VBG pO2 at Pat Temp (25-40) mm/Hg VBG HCO3 (22-28) meq/L VBG O2 Sat (Emani) (95-100) VBG Base Excess (-2.0-2.0) VBG Hemoglobin VBG Carboxyhemoglobin (0.0-6.9) % T HGB POC Potassium (3.5-5.1) Sodium (137-145) mmol/L Potassium (3.5-5.1) mmol/L Chloride (98-107) mmol/L Carbon Dioxide (22-30) mmol/L Anion Gap (5-15) MEQ/L BUN (7-17) mg/dL Creatinine (0.52-1.04) mg/dL Estimated GFR ML/MIN Glucose (74-106) mg/dL Lactic Acid (0.4-2.0) Calcium (8.4-10.2) mg/dL Magnesium (1.6-2.3) mg/dL Total Bilirubin (0.2-1.3) mg/dL AST (14-36) U/L ALT (0-35) U/L Alkaline Phosphatase (38-126) U/L Troponin I 0.014 0.014 (0.000-0.034) ng/mL NT-Pro-B Natriuret Pep (0-1800) pg/mL Serum Total Protein (6.3-8.2) g/dL Albumin (3.5-5.0) g/dL Urine Color (YELLOW) Urine Appearance (CLEAR) Urine pH (5-6) Ur Specific [place] (1.005-1.025) Urine Protein (Negative) Urine Ketones (NEGATIVE) Urine Blood (0-5) Benito/ul Urine Nitrite (NEGATIVE) Urine Bilirubin (NEGATIVE) Urine Urobilinogen (0-1) mg/dL Ur Leukocyte Esterase (NEGATIVE) Urine WBC (Auto) (0-5) /HPF Urine RBC (Auto) (0-2) /HPF U Epithel Cells (Auto) (FEW) /HPF Urine Bacteria (Auto) (NEGATIVE) /HPF Urine Mucus (Auto) (NEGATIVE) /HPF Urine Culture Reflexed (NO) Urine Glucose (NEGATIVE) mg/dL Slides for Path Review - Radiology Impressions Radiology Exams & Impressions: Radiology Procedures Category Date Time Status CHEST 1 VIEW (PORTABLE) Stat Exams 01/19/19 03:05 Completed HAND (MINIMUM 3 VIEWS) Stat Exams 01/19/19 03:08 Completed - Other Procedures and Tests Respiratory Therapy 01/19/19 06:35 EKG Assessment/Plan (1) Pyelonephritis Current Visit: Yes Status: Acute Assessment & Plan: start rocephin 1 gm q 24 Code(s): N12 - TUBULO-INTERSTITIAL NEPHRITIS, NOT SPCF ACUTE OR CHRONIC (2) Hypertensive urgency Current Visit: Yes Status: Acute Assessment & Plan: Last Vital Signs Temp 98.7 F 01/19/19 07:37 Pulse 83 01/19/19 07:37 Resp 18 01/19/19 07:37 BP 180/82 01/19/19 07:37 Pulse Ox 93 L 01/19/19 08:00 Allergies No Known Drug Allergies Allergy (Verified 01/19/19 02:49) Active Medications Acetaminophen (Tylenol 325 Mg) 325 mg PO Q4H PRN PRN PRN Reason: PAIN, FEVER, HEADACHE Stop: 02/18/19 06:34 Last Admin: 01/19/19 09:36 Dose: 325 mg Docusate Sodium (Colace 100 Mg) 100 mg PO BIDPRN PRN PRN Reason: CONSTIPATION Stop: 02/18/19 06:34 Enoxaparin Sodium (Enoxaparin Sodium) 40 mg SQ DAILY [place] Stop: 02/18/19 09:59 Last Admin: 01/19/19 09:36 Dose: 40 mg Famotidine (Pepcid 20 Mg) 20 mg PO BID [place] Stop: 02/18/19 09:59 Last Admin: 01/19/19 09:36 Dose: 20 mg Sodium Chloride (Sodium Chloride 0.9% 1000 Ml) 1,000 mls @ 100 mls/hr IV .Q10H [place] Stop: 02/18/19 06:34 Last Admin: 01/19/19 08:14 Dose: 100 mls/hr Intake & Output 01/18/19 01/19/19 11:59 11:59 Intake Total 240 Output Total 200 Balance 40 Weight 79.2 kg Orders 01/19/19 07:55 [employer] W[employer]ing [employer] Operator/Discharge Plan Lab Tests 01/19/19 01/19/19 01/19/19 03:04 03:04 03:04 WBC 9.7 RBC 4.35 Hgb 13.1 Hct 38.4 MCV 88.3 MCH 30.1 MCHC 34.1 RDW 13.5 Plt Count 182 MPV 9.0 Gran % 78.4 H Eos # (Auto) 0.04 Absolute Lymphs (auto) 1.37 Absolute Monos (auto) 0.67 Lymphocytes % 14.2 L Monocytes % 6.9 Eosinophils % 0.4 Basophils % 0.1 Absolute Granulocytes 7.57 H Basophils # 0.01 PT 14.4 H INR 1.27 APTT 41.3 H pO2/FiO2 Ratio VBG pH VBG pCO2 at Pat Temp VBG pO2 at Pat Temp VBG HCO3 VBG O2 Sat (Emani) VBG Base Excess VBG Hemoglobin VBG Carboxyhemoglobin POC Potassium Sodium 135 L Potassium 3.3 L Chloride 105 Carbon Dioxide 19 L Anion Gap 14.2 BUN 12 Creatinine 0.56 Estimated GFR > 60.0 Glucose 121 H Lactic Acid Calcium 9.5 Magnesium 1.7 Total Bilirubin 1.30 AST 27 ALT 14 Alkaline Phosphatase 75 Troponin I NT-Pro-B Natriuret Pep 1130 Serum Total Protein 8.0 Albumin 4.2 Urine Color Urine Appearance Urine pH Ur Specific [place] Urine Protein Urine Ketones Urine Blood Urine Nitrite Urine Bilirubin Urine Urobilinogen Ur Leukocyte Esterase Urine WBC (Auto) Urine RBC (Auto) U Epithel Cells (Auto) Urine Bacteria (Auto) Urine Mucus (Auto) Urine Culture Reflexed Urine Glucose Slides for Path Review NO 01/19/19 01/19/19 01/19/19 03:15 03:21 03:30 WBC RBC Hgb Hct MCV MCH MCHC RDW Plt Count MPV Gran % Eos # (Auto) Absolute Lymphs (auto) Absolute Monos (auto) Lymphocytes % Monocytes % Eosinophils % Basophils % Absolute Granulocytes Basophils # PT INR APTT pO2/FiO2 Ratio 21.0 VBG pH 7.50 H VBG pCO2 at Pat Temp 25 L VBG pO2 at Pat Temp 68 H VBG HCO3 19.5 L VBG O2 Sat (Emani) 97.3 VBG Base Excess -2.1 L VBG Hemoglobin 13.8 VBG Carboxyhemoglobin 2.4 POC Potassium 3.1 L Sodium Potassium Chloride Carbon Dioxide Anion Gap BUN Creatinine Estimated GFR Glucose Lactic Acid 0.9 Calcium Magnesium Total Bilirubin AST ALT Alkaline Phosphatase Troponin I 0.015 NT-Pro-B Natriuret Pep Serum Total Protein Albumin Urine Color YELLOW Urine Appearance CLOUDY Urine pH 7.0 Ur Specific [place] 1.012 Urine Protein 100 Urine Ketones MODERATE Urine Blood SMALL Urine Nitrite NEGATIVE Urine Bilirubin NEGATIVE Urine Urobilinogen NEGATIVE Ur Leukocyte Esterase LARGE Urine WBC (Auto) >100 Urine RBC (Auto) 6-10 U Epithel Cells (Auto) RARE Urine Bacteria (Auto) NONE Urine Mucus (Auto) SLIGHT Urine Culture Reflexed YES Urine Glucose NEGATIVE Slides for Path Review 01/19/19 01/19/19 06:24 09:15 WBC RBC Hgb Hct MCV MCH MCHC RDW Plt Count MPV Gran % Eos # (Auto) Absolute Lymphs (auto) Absolute Monos (auto) Lymphocytes % Monocytes % Eosinophils % Basophils % Absolute Granulocytes Basophils # PT INR APTT pO2/FiO2 Ratio VBG pH VBG pCO2 at Pat Temp VBG pO2 at Pat Temp VBG HCO3 VBG O2 Sat (Emani) VBG Base Excess VBG Hemoglobin VBG Carboxyhemoglobin POC Potassium Sodium Potassium Chloride Carbon Dioxide Anion Gap BUN Creatinine Estimated GFR Glucose Lactic Acid Calcium Magnesium Total Bilirubin AST ALT Alkaline Phosphatase Troponin I 0.014 0.014 NT-Pro-B Natriuret Pep Serum Total Protein Albumin Urine Color Urine Appearance Urine pH Ur Specific [place] Urine Protein Urine Ketones Urine Blood Urine Nitrite Urine Bilirubin Urine Urobilinogen Ur Leukocyte Esterase Urine WBC (Auto) Urine RBC (Auto) U Epithel Cells (Auto) Urine Bacteria (Auto) Urine Mucus (Auto) Urine Culture Reflexed Urine Glucose Slides for Path Review Code(s): I16.0 - HYPERTENSIVE URGENCY (3) Dehydration Current Visit: Yes Status: Acute Code(s): E86.0 - DEHYDRATION (4) UTI (urinary tract infection) Current Visit: Yes Status: Acute Qualifiers: Indwelling urinary catheter type: unspecified Encounter type: initial encounter Code(s): N39.0 - URINARY TRACT INFECTION, SITE NOT SPECIFIED (5) Hypokalemia Current Visit: Yes Status: Acute Code(s): E87.6 - HYPOKALEMIA (6) Generalized weakness Current Visit: Yes Status: Acute Code(s): R53.1 - WEAKNESS
[2019-01-19] MEDS: Protonix 40MG Tablet PO SCH (12:48)
[2019-01-19] MEDS: BUMEX 1 MG PO SCH (12:48)
[2019-01-19] MEDS: Zestril 10 MG PO SCH (12:48)
[2019-01-19] MEDS: Zaroxolyn 2.5 MG PO SCH (12:49)
[2019-01-19 15:36] LABS: BLOOD UREA NITROGEN 12 mg/dL (7-17); CHLORIDE 106 mmol/L (98-107); Carbon Dioxide 22 mmol/L (22-30); Creatinine 1 0.59 mg/dL (0.52-1.04); Glucose 96 mg/dL (74-106); Potassium 3.4 mmol/L (3.5-5.1); SODIUM 137 mmol/L (137-145)
[2019-01-19] MEDS: TYLENOL EXTRA STRENGTH 500 MG PO PRN (15:42)
[2019-01-20] MEDS: Sodium Chloride 0.9% 1000 ML 1,000 ML IV SCH (03:37)
[2019-01-20] MEDS: TYLENOL EXTRA STRENGTH 500 MG PO PRN (07:55)
[2019-01-20] MEDS ORDERED: NON-FORMULARY ITEM (Omeprazole [Omeprazole] 40 MG) PO SCH (10:00)
[2019-01-20] MEDS: Zaroxolyn 2.5 MG PO SCH (10:51)
[2019-01-20] MEDS: Pepcid 20 MG PO SCH ×2 (10:52→21:28)
[2019-01-20] MEDS: BUMEX 1 MG PO SCH (10:52)
[2019-01-20] MEDS: Protonix 40MG Tablet PO SCH (10:52)
[2019-01-20] MEDS: ENOXAPARIN SODIUM SQ SCH (10:53)
[2019-01-20] MEDS: Zestril 10 MG PO SCH (10:54)
[2019-01-20] MEDS: ROCEPHIN 1 Gm-D5w 50 ml Bag** 1 G/50 ML IVPB IV SCH (11:54)
--- NOTE | 2019-01-20 12:31 | PCM.NOTE ---
Date and Time: 01/20/19 1230 Subjective Assessment: doing ok - Review of Systems Constitutional: No Fever, No Chills Eyes: No Symptoms Ears, Nose, & Throat: No Symptoms Respiratory: No Cough, No Short Of Breath Cardiac: No Chest Pain, No Edema, No Syncope Abdominal/Gastrointestinal: No Abdominal Pain, No Nausea, No Vomiting, No Diarrhea Genitourinary Symptoms: No Dysuria Musculoskeletal: No Back Pain, No Neck Pain Skin: No Rash Neurological: No Dizziness, No Focal Weakness, No Sensory Changes Psychological: No Symptoms Endocrine: No Symptoms Hematologic/Lymphatic: No Symptoms Immunological/Allergic: No Symptoms Objective Exam General Appearance: no apparent distress, alert Neurologic Exam: alert, oriented x 3, cooperative, normal mood/affect, nml cerebellar function, sensation nml, No motor deficits Skin Exam: normal color, warm, dry Eye Exam: PERRL, EOMI, eyes nml inspection Ears, Nose, Throat Exam: normal ENT inspection, pharynx normal, moist mucous membranes Neck Exam: normal inspection, non-tender, supple, full range of motion Respiratory Exam: normal breath sounds, lungs clear, No respiratory distress Cardiovascular Exam: regular rate/rhythm, normal heart sounds Gastrointestinal/Abdomen Exam: soft, No tenderness, No mass Extremity Exam: normal inspection, normal range of motion Back Exam: normal inspection, normal range of motion, No CVA tenderness, No vertebral tenderness Pelvic Exam: deferred Rectal Exam: deferred OBJECTIVE DATA Vital Signs: Vital Signs - 24 hr Temp Pulse Resp BP Pulse Ox 01/20/19 08:00 98 01/20/19 07:46 97.4 F 75 16 137/65 98 01/20/19 03:41 98.4 F 76 18 142/64 95 01/19/19 23:48 98.1 F 73 18 180/79 95 01/19/19 20:00 98.0 F 82 16 112/57 95 01/19/19 16:00 97.5 F 73 18 143/70 95 Pain Assessment - Last Documented Pain Intensity 7 Pain Scale Used [facility] Intake and Output: Intake & Output 01/18/19 01/19/19 01/20/19 01/21/19 11:59 11:59 11:59 11:59 Intake Total 240 3442 Output Total 200 4200 Balance 40 -758 Weight 79.2 kg 79.2 kg Lab Results: Lab Results-Last 24 Hours 01/19/19 01/19/19 01/19/19 Range/Units 12:45 15:20 15:20 Sodium 137 (137-145) mmol/L Potassium 3.4 L (3.5-5.1) mmol/L Chloride 106 (98-107) mmol/L Carbon Dioxide 22 (22-30) mmol/L Anion Gap 13.0 (5-15) MEQ/L BUN 12 (7-17) mg/dL Creatinine 0.59 (0.52-1.04) mg/dL Estimated GFR > 60.0 ML/MIN Glucose 96 (74-106) mg/dL Uric Acid (2.6-6.0) mg/dL Calcium 9.0 (8.4-10.2) mg/dL Troponin I 0.013 0.014 (0.000-0.034) ng/mL 01/19/19 Range/Units Unknown Sodium (137-145) mmol/L Potassium (3.5-5.1) mmol/L Chloride (98-107) mmol/L Carbon Dioxide (22-30) mmol/L Anion Gap (5-15) MEQ/L BUN (7-17) mg/dL Creatinine (0.52-1.04) mg/dL Estimated GFR ML/MIN Glucose (74-106) mg/dL Uric Acid 4.1 (2.6-6.0) mg/dL Calcium (8.4-10.2) mg/dL Troponin I (0.000-0.034) ng/mL Radiology Exams: Radiology Procedures Category Date Time Status CHEST 1 VIEW (PORTABLE) Stat Exams 01/19/19 03:05 Completed HAND (MINIMUM 3 VIEWS) Stat Exams 01/19/19 03:08 Completed Multi-Disciplinary Progress Notes: Multi-Disciplinary Progress Notes 01/20/19 11:08 Case Management Note by Callie Madera PAPERWORK COMPLETE, FAXED COPY TO [facility], PLACED IN CHART. Initialized on 01/20/19 11:08 - END OF NOTE 01/20/19 10:59 Case Management Note by Callie Madera REFERRAL TO [facility], SPOKE WITH GRANT. Initialized on 01/20/19 10:59 - END OF NOTE 01/20/19 10:00 (created 01/20/19 10:56) Case Management Note by Callie Madera DISCUSSION WITH PT AND REGARDING NEEDS ON DISCHARGE. DISCUSSED DISCHARGE OPTIONS, HOME WITH [facility] VS REHAB STAY. PT IS ALERT THIS MORING. REPORTS THAT SHE KNOWS THAT SHE IS WEAK, AND FEELS THAT SHE COULD BENEFIT FROM SOME REHAB ON DISCHARGE. IN AGREEMENT, BUT ALSO, SAYS THAT HE CAN TAKE HER HOME. PT/ BOTH REQUEST REFERRAL TO [facility] FOR REHAB STAY ON DISCHARGE, REPORTS THAT THIS IS JUST A FEW BLOCKS FROM THEIR HOME. DENIES [facility] NEEDS FOR DISCHARGE. WILL FOLLOW. Initialized on 01/20/19 10:56 - END OF NOTE 01/19/19 14:57 Physical Therapy Note by Sandee Aguila PATIENT ABLE TO AMBULATE IN HALLWAY WITH [employer]-HELD MOD ASSIST +1 THIS AFTERNOON ( 150'+ X2). BETTER FUNCTIONAL MOBILITY WITH CUEING FOR WALKING AND TOILETING. REQUIRES HELP FOR SELF CARE IN TOILETING PROCESS. Initialized on 01/19/19 14:57 - END OF NOTE Assessment/Plan (1) Pyelonephritis Current Visit: Yes Status: Acute Assessment & Plan: improving Code(s): N12 - TUBULO-INTERSTITIAL NEPHRITIS, NOT SPCF ACUTE OR CHRONIC (2) Hypertensive urgency Current Visit: Yes Status: Resolved Code(s): I16.0 - HYPERTENSIVE URGENCY (3) Dehydration Current Visit: Yes Status: Acute Code(s): E86.0 - DEHYDRATION (4) UTI (urinary tract infection) Current Visit: Yes Status: Acute Qualifiers: Indwelling urinary catheter type: unspecified Encounter type: initial encounter Code(s): N39.0 - URINARY TRACT INFECTION, SITE NOT SPECIFIED (5) Hypokalemia Current Visit: Yes Status: Acute Code(s): E87.6 - HYPOKALEMIA (6) Generalized weakness Current Visit: Yes Status: Acute Code(s): R53.1 - WEAKNESS
[2019-01-21 06:29] LABS: BASOPHIL % 0.3 % (0.0-0.4); Basophil (Absolute #) 0.02 (0-0.4); Eosinophil % 2.8 % (0.00-5.0); Eosinophil (Absolute #) 0.18 (0-0.5); Granulocyte Absolute (ANC) 3.61 (1.4-6.9); Hematocrit 35.8 % (35-47); Hemoglobin 12.4 gm/dl (12.0-16.0); Lymphocyte (Absolute #) 2.06 (1.0-4.6); Lymphocytes % 31.9 % (24.0-44.0); Mean Cell Volume 89.1 fl (78-100); Mean Corpuscular Hemoglobin 30.8 pg (26-32); Mean Corpuscular Hgb Concent. 34.6 g/dl (32-36); Mean Platelet Volume 9.7 fl (6-9.5); Monocyte (Absolute #) 0.58 (0.0-1.3); Platelet Count 207 K/mm3 (150-450); Red Blood Count 4.02 M/mm3 (4.1-5.4); Red Cell Distribution Width 13.4 % (11.5-14.0); White Blood Count 6.5 K/mm3 (4.0-10.5)
[2019-01-21] MEDS: Protonix 40MG Tablet PO SCH (09:29)
[2019-01-21] MEDS: Pepcid 20 MG PO SCH ×2 (09:29→20:41)
[2019-01-21] MEDS: Zaroxolyn 2.5 MG PO SCH (09:29)
[2019-01-21] MEDS: ENOXAPARIN SODIUM SQ SCH (09:30)
[2019-01-21] MEDS: BUMEX 1 MG PO SCH (09:30)
[2019-01-21] MEDS: Zestril 10 MG PO SCH (09:30)
[2019-01-21] MEDS: ROCEPHIN 1 Gm-D5w 50 ml Bag** 1 G/50 ML IVPB IV SCH (09:30)
[2019-01-21] MEDS: TYLENOL EXTRA STRENGTH 500 MG PO PRN (10:23)
--- NOTE | 2019-01-21 12:59 | PCM.NOTE ---
Date and Time: 01/21/19 1250 Subjective Assessment: 83 yr old female seen and examined this am. Patient reports that she is feeling tired this am. She reports that she feels that she is being given too much food for her meals and would like to cut back on the amount because she is a slow eater. She understands that she will be going to [place] tomorrow due to weakness and deconditioning. - Review of Systems Constitutional: Other (Fatigue) Eyes: No Double Vision Respiratory: No Short Of Breath Cardiac: No Edema Abdominal/Gastrointestinal: Constipation (Wanted a stool softner), No Nausea, No Vomiting, No Diarrhea Genitourinary Symptoms: Other (occasional urinary incontinence) Musculoskeletal: Joint Pain (R wrist joint) Skin: No Cellulitis Neurological: No Dizziness Objective Exam General Appearance: no apparent distress, alert, anxiety Neurologic Exam: alert, oriented x 3, cooperative Skin Exam: normal color, warm, dry Eye Exam: eyes nml inspection Ears, Nose, Throat Exam: moist mucous membranes Respiratory Exam: normal breath sounds, lungs clear Cardiovascular Exam: regular rate/rhythm Gastrointestinal/Abdomen Exam: soft, normal bowel sounds, No tenderness, No distention Extremity Exam: deformities (R wrist deformity) OBJECTIVE DATA Vital Signs: Vital Signs - 24 hr Temp Pulse Resp BP Pulse Ox 01/21/19 12:00 98.2 F 70 18 114/57 95 01/21/19 07:30 97.9 F 92 H 18 120/58 95 01/21/19 04:00 97.9 F 77 19 150/68 96 01/21/19 00:00 98.1 F 93 H 17 131/67 98 01/20/19 20:00 97.9 F 92 H 18 119/59 96 01/20/19 16:00 98.3 F 75 18 122/71 95 Pain Assessment - Last Documented Pain Intensity 0 Pain Scale Used [facility] Intake and Output: Intake & Output 01/19/19 01/20/19 01/21/19 01/22/19 11:59 11:59 11:59 11:59 Intake Total 240 3442 1700 Output Total 200 4200 1377 Balance 40 -758 323 Weight 79.2 kg 79.2 kg Lab Results: Lab Results-Last 24 Hours 01/21/19 Range/Units 05:56 WBC 6.5 (4.0-10.5) K/mm3 RBC 4.02 L (4.1-5.4) M/mm3 Hgb 12.4 (12.0-16.0) gm/dl Hct 35.8 (35-47) % MCV 89.1 (78-100) fl MCH 30.8 (26-32) pg MCHC 34.6 (32-36) g/dl RDW 13.4 (11.5-14.0) % Plt Count 207 (150-450) K/mm3 MPV 9.7 H (6-9.5) fl Gran % 56.0 (36.0-66.0) % Eos # (Auto) 0.18 (0-0.5) Absolute Lymphs (auto) 2.06 (1.0-4.6) Absolute Monos (auto) 0.58 (0.0-1.3) Lymphocytes % 31.9 (24.0-44.0) % Monocytes % 9.0 (0.0-12.0) % Eosinophils % 2.8 (0.00-5.0) % Basophils % 0.3 (0.0-0.4) % Absolute Granulocytes 3.61 (1.4-6.9) Basophils # 0.02 (0-0.4) Multi-Disciplinary Progress Notes: Multi-Disciplinary Progress Notes 01/20/19 15:52 Physical Therapy Note by Jaclyn Dickerson PT. CONFUSED SOMEWHAT TO EVENTS. HAS CHAIR ALARM IN PLACE D/T FALL RISK. NO C/O PN. CONT. W/ NOTABLE EDEMA/DEFORMITY. PT. REPORTS COCK-UP SPLINT SHE HAS FOR R WRIST IS PNFUL AND SHE WOULD RATHER NOT WEAR IT. PT. PERFORMED SIT TO STAND W/ MIN ASSIST - DOES REPORT SOME R KNEE DISCOMFORT W/ FIRST STEPS. AMBULATED 70' W/ MIN ASSIST - HAND HELD L UE D/T R WRIST DISCOMFORT LIMITING A.D. USE WELL COGNITIVE LIMITATIONS. PT. SHOULD CONT. P.T. IN SNF UPON D/ C YO MAXIMIZE FUNCTIONAL INDEPENDENCE. JACLYN DICKERSON PT Initialized on 01/20/19 15:52 - END OF NOTE Assessment/Plan (1) Generalized weakness Current Visit: Yes Status: Acute Assessment & Plan: Patient feels tired today and is having generalized weakness. This potentially could be related to deconditioning. Plan for patient to go to [place] tomorrow if she remains stable. Code(s): R53.1 - WEAKNESS (2) Hypokalemia Current Visit: Yes Status: Acute Assessment & Plan: Patient's bmp showed potassium of 3.4 on admission. Repeat BMP ordered for am. Code(s): E87.6 - HYPOKALEMIA (3) Pyelonephritis Current Visit: Yes Status: Resolved Assessment & Plan: Patient was admitted for pyelonephritis. Patient has received Rocephin antibiotic therapy for pyelo. Patient has been afebrile and has been urinating without issue. She wears a depends and does not currently have bustos catheter Code(s): N12 - TUBULO-INTERSTITIAL NEPHRITIS, NOT SPCF ACUTE OR CHRONIC (4) UTI (urinary tract infection) Current Visit: Yes Status: Acute Qualifiers: Indwelling urinary catheter type: unspecified Assessment & Plan: See same plan for pyelo Code(s): N39.0 - URINARY TRACT INFECTION, SITE NOT SPECIFIED (5) Hypertensive urgency Current Visit: Yes Status: Acute Assessment & Plan: Patient's blood pressures have been well controlled during hospital admission. Will continue on home medications for HTN Code(s): I16.0 - HYPERTENSIVE URGENCY
[2019-01-21 15:03] LABS: ANION GAP 15.1 MEQ/L (5-15); Calcium 9.4 mg/dL (8.4-10.2); Creatinine 1 1.15 mg/dL (0.52-1.04)
[2019-01-21 15:05] LABS: Potassium 2.8 mmol/L (3.5-5.1)
[2019-01-21] MEDS ORDERED: POTASSIUM CHLORIDE 20 mEq IN WATER 100ML 20 MEQ/100 ML BAG IV SCH (15:15)
[2019-01-21] MEDS ORDERED: POTASSIUM CHLORIDE 20 mEq IN WATER 100ML 0 ML IV ONE (15:25)
[2019-01-21] MEDS ORDERED: Klor Con 10 MEQ PO ONE ×2 (16:13→20:40)
[2019-01-22 06:29] LABS: ANION GAP 10.2 MEQ/L (5-15); Calcium 8.8 mg/dL (8.4-10.2); Creatinine 1 1.05 mg/dL (0.52-1.04); Potassium 3.3 mmol/L (3.5-5.1)
[2019-01-22 08:19] VITALS: O2SAT 95
[2019-01-22] MEDS: TYLENOL EXTRA STRENGTH 500 MG PO PRN (10:23)
--- NOTE | 2019-01-22 10:27 | PCM.DS ---
Discharge Summary Date of Admission: 01/19/19 06:34 Date of Discharge: 01/22/2019 Admitting Physician: MARIE UREÑA Primary Care Provider: MARIE UREÑA Allergies Allergies No Known Drug Allergies Allergy (Verified 01/19/19 02:49) Hospital Summary - Hospital Course Hospital Course: is a 83 year old female.Patient has been having progressively increasing weakness that culminated with patient being unable to get off the toilet by herself due to hand pain prior to going to the emergency department. Patient's states he can not help take care of her anymore at home by himself. Patient upon evaluation in ER was admitted for Hypertensive urgency, Dehydration, Hypokalemia, Generalized weakness and R hand pain. Xrays in ER showed degenerative changes. Patient was admitted inpatient was started on IV fluids for dehydration. She received potassium repletion as well. She received antibiotics for UTI. She was also treated for hypertensive urgency. Her blood pressures have been within normal limits. Patient has continue to have hypokalemia and will need to take daily potassium 10 meq PO daily upon discharge and will need repeat BMP in a few days. Patient's symptoms have improved since hospital admission and patient will be able to be discharged to assisted today. - Vitals & Intake/Output Vital Signs: Vital Signs Temperature 98.1 F 01/22/19 08:00 Pulse Rate 75 01/22/19 08:00 Respiratory Rate 18 01/22/19 08:00 Blood Pressure 119/57 01/22/19 08:00 O2 Sat by Pulse Oximetry 95 01/22/19 08:00 Intake & Output: Intake & Output 01/19/19 01/20/19 01/21/19 01/22/19 11:59 11:59 11:59 11:59 Intake Total 240 3442 1700 1340 Output Total 200 4200 1377 100 Balance 40 587 455 0836 Weight 79.2 kg 79.2 kg - Lab Result Diagrams: 01/21/19 05:56 01/22/19 05:22 Lab Results-Last 24 Hrs: Lab Results-Last 24 Hours 01/21/19 01/22/19 Range/Units 14:14 05:22 Sodium 136 L 136 L (137-145) mmol/L Potassium 2.8 L* 3.3 L (3.5-5.1) mmol/L Chloride 96 L 102 (98-107) mmol/L Carbon Dioxide 28 27 (22-30) mmol/L Anion Gap 15.1 H 10.2 (5-15) MEQ/L BUN 21 H 26 H (7-17) mg/dL Creatinine 1.15 H 1.05 H (0.52-1.04) mg/dL Estimated GFR 47.9 53.2 ML/MIN Glucose 108 H 92 (74-106) mg/dL Calcium 9.4 8.8 (8.4-10.2) mg/dL Micro Results-Entire Visit: Microbiology 01/19/19 03:21 Urine Culture - Final Clean Catch Midstream Escherichia Coli - Procedures and Test Procedures and Tests throughout Hospitalization: Therapy Orders & Screens 01/19/19 06:35 OT Eval and Treat ( Order) ROUTINE Comment: Consulting Provider: Physician Instructions: Reason For Exam: PT Eval & Treat ( Order) ROUTINE Reason for Eval:: Generalized Weakness Diagnosis: Generalized Weakness EKG Comment: Discharge Exam General Appearance: no apparent distress, anxiety (Patient does not want to be at the [facility] without her ) Neurologic Exam: alert, cooperative, normal mood/affect, confusion Eye Exam: eyes nml inspection Ears, Nose, Throat Exam: moist mucous membranes Neck Exam: normal inspection Respiratory Exam: normal breath sounds, lungs clear Cardiovascular Exam: regular rate/rhythm, normal heart sounds Gastrointestinal/Abdomen Exam: soft, normal bowel sounds, No tenderness, No distention Extremity Exam: pedal edema, other (Bilateral wrist deformities) Skin Exam: normal color, warm, dry Final Diagnosis/Problem List - Final Discharge Diagnosis/Problem (1) Generalized weakness Current Visit: Yes Status: Chronic Assessment & Plan: Patient was having difficulties with some ADLs including strength to get off of the toilet without assistance. Her is unable to care for her at home and would like her to be taken care of at the [facility]. Patient's strength has improved minimally at the hospital and she will likely require PT and OT for improved strength. Code(s): R53.1 - WEAKNESS (2) Hypokalemia Current Visit: Yes Status: Chronic Assessment & Plan: Patient's potassium has trended down and then up. She reports being on potassium supplements at home and states that she ran out of her pills. Patient will need to be on potassium as an outpatient and will need to get repeat labs to eval potassium level. Code(s): E87.6 - HYPOKALEMIA (3) UTI (urinary tract infection) Current Visit: Yes Status: Acute Assessment & Plan: Patient has received x3 doses of rocephin which should have completed her treatment course. Patient's culture grew [id number] cfu of ecoli sensitive to antibiotic tx patient received. Will have NH monitor VS for fever or dysuria and other associated symptoms of UTI Code(s): N39.0 - URINARY TRACT INFECTION, SITE NOT SPECIFIED (4) Hypertensive urgency Current Visit: Yes Status: Acute Assessment & Plan: Patient's bp has been wnl. Will continue to monitor BP as outpatient and tx as necessary. Patient will continue on routine home meds. Code(s): I16.0 - HYPERTENSIVE URGENCY - Discharge Disposition: DC TO ANY "OTHER" [facility] Condition: Stable Prescriptions: New Potassium Chloride 10 Meq Tab* [Klor Con 10 MEQ] 10 meq PO DAILY #30 tab Continue Omeprazole 40 mg PO DAILY Metolazone 2.5 mg [Zaroxolyn 2.5 MG] 2.5 mg PO DAILY Lisinopril 10 mg [Zestril 10 MG] 10 mg PO DAILY Bumetanide 1 mg [Bumex 1 mg] 1 mg PO DAILY Additional Instructions: Patient will need to have a BMP on 01/24/2019 to eval potassium level Follow up with: EFRAIN CONNER [COURTESY STAFF] - 1 Week
[2019-01-22] MEDS: BUMEX 1 MG PO SCH (10:28)
[2019-01-22] MEDS: Zestril 10 MG PO SCH (10:28)
[2019-01-22] MEDS: Protonix 40MG Tablet PO SCH (10:28)
[2019-01-22] MEDS: Pepcid 20 MG PO SCH (10:28)
[2019-01-22] MEDS: ENOXAPARIN SODIUM SQ SCH (10:28)
[2019-01-22] MEDS: Zaroxolyn 2.5 MG PO SCH (10:28)
[2019-01-22] MEDS: ROCEPHIN 1 Gm-D5w 50 ml Bag** 1 G/50 ML IVPB IV SCH (10:28)
[2019-01-22] MEDS ORDERED: Klor Con 10 MEQ PO SCH (11:24)
[2019-01-22 13:03] VITALS: BP 103/54; PULSE 70
[2019-01-23] MEDS ORDERED: Klor Con 10 MEQ PO SCH (10:00)
== END 2019-01-22 13:20 | DRG 948 ==
LOC: ED 02:37 → MED SURG 06:34
PROVIDERS: ADMIT General Practice; ATTEND General Practice
DX: R53.1 Weakness (principal); N39.0 Urinary tract infection, site not specified; I16.0 Hypertensive urgency; E86.0 Dehydration; E87.6 Hypokalemia; M79.641 Pain in right hand; Z79.899 Other long term (current) drug therapy; K59.00 Constipation, unspecified
CPT/HCPCS: 36000; 36415; 71045; 73130; 80048; 80053; 81001; 82805; 83605; 83735; 83880; 84484; 84550; 85025; 85610; 85730; 87077; 87086; 87186; 93005; 93041; 96365; 96374; 99284; 99285; J0696; J1650; J3480; A9270-GY

== ENCOUNTER 2019-11-21 19:13 | Emergency (ER) | payer MEDICARE, OTHER ==
--- NOTE | 2019-11-21 19:40 | ERPHSYRPT ---
- History of Present Illness Time Seen by Provider: 11/21/19 19:40 Source: patient Exam Limitations: no limitations Physician History: This is an 84-year-old white female who presents with pain in the buttock after a fall 3 days ago. Patient fell directly onto her buttock. She wants to be sure there is there is not any broken bones present. Patient has not taken anything for her pain she states. There are no other areas of aches or pains. Patient is able to stand and ambulate but it hurts to do so Occurred: days ago (3) Reason for Fall: unknown Loss of Consciousness: no loss of consciousness Quality: aching Severity of Pain-Max: moderate Severity of Pain-Current: moderate Modifying Factors: Improves With: movement Associated Symptoms (Fall): denies symptoms Allergies/Adverse Reactions: No Known Drug Allergies Allergy (Verified 11/21/19 19:50) Home Medications: Bumetanide 1 mg [Bumex 1 mg] 1 mg PO DAILY 01/19/19 [History] Lisinopril 10 mg [Zestril 10 MG] 10 mg PO DAILY 01/19/19 [History] Metolazone 2.5 mg [Zaroxolyn 2.5 MG] 2.5 mg PO DAILY 01/19/19 [History] Omeprazole 40 mg PO DAILY 01/19/19 [History] Hx Tetanus, Diphtheria Vaccination/Date Given: Yes Hx Influenza Vaccination/Date Given: Yes Hx Pneumococcal Vaccination/Date Given: Yes Travel Risk - International Travel Have you traveled outside of the country in past 3 weeks: No - Coronavirus Screening Are you exhibiting any of the following symptoms?: No Close contact with a COVID-19 positive Pt in past 14-21 Days: No - Review of Systems Constitutional: No Symptoms Eyes: No Symptoms Ears, Nose, & Throat: No Symptoms Respiratory: No Symptoms Cardiac: No Symptoms Abdominal/Gastrointestinal: No Symptoms Genitourinary Symptoms: No Symptoms Musculoskeletal: Fall, Other (Buttock pain) Skin: No Symptoms Neurological: No Symptoms Psychological: No Symptoms Endocrine: No Symptoms Hematologic/Lymphatic: No Symptoms Immunological/Allergic: No Symptoms All Other Systems: Reviewed and Negative - Past Medical History Pertinent Past Medical History: Yes Neurological History: TIA ENT History: No Pertinent History Cardiac History: No Pertinent History Respiratory History: Bronchitis Endocrine Medical History: No Pertinent History Musculoskeletal History: Arthritis GI Medical History: No Pertinent History History: No Pertinent History Psycho-Social History: No Pertinent History Female Reproductive Disorders: Breast Cancer Other Medical History: Patient is a poor historian. - Past Surgical History Past Surgical History: Yes Neuro Surgical History: No Pertinent History Cardiac: No Pertinent History Respiratory: No Pertinent History Gastrointestinal: Other Genitourinary: No Pertinent History Musculoskeletal: No Pertinent History Female Surgical History: Mastectomy Other Surgical History: "bladder surgery". Pt is poor historian - Social History Smoking Status: Never smoker Exposure to second hand smoke: No Drug Use: none Patient Lives Alone: No - Nursing Vital Signs Nursing Vital Signs: Initial Vital Signs Temperature 97.6 F 11/21/19 19:43 Pulse Rate 74 11/21/19 19:43 Respiratory Rate 16 11/21/19 19:43 Blood Pressure 177/77 11/21/19 19:43 O2 Sat by Pulse Oximetry 99 11/21/19 19:43 Pain Scale Pain Intensity 10 - [place] Coma Score Best Eye Response ([place]): (4) open spontaneously Best Verbal Response ([place]): (5) oriented Best Motor Response ([place]): (6) obeys commands [place] Total: 15 - Physical Exam General Appearance: no apparent distress, alert, anxiety Head Injury: no evidence of injury Eye Exam: PERRL/EOMI, eyes nml inspection ENT Exam: airway nml, nml ext.inspection Neck Exam: supple, trachea midline, full range of motion, normal alignment, normal inspection Respiratory/Chest Exam: No chest tenderness, No respiratory distress Gastrointestinal Exam: soft, normal bowel sounds, No tenderness Rectal Exam: not done Back Exam: other (Tenderness in the midline in the area of the sacrum and coccyx.) Extremity Exam: normal inspection, normal range of motion, capillary refill <3 sec, pelvis stable Neurologic Exam: alert, oriented x 3, cooperative, canal structure operator II-XII nml as tested, normal mood/affect, nml cerebellar function, nml station & gait, sensation nml Skin Exam: normal color, warm, dry SpO2 Interpretation: normal O2 Delivery: Room Air Ordered Tests: Active Orders 24 hr Category Date Time Status PELVIS (1 OR 2 VIEWS) Stat Exams 11/21/19 20:49 Taken SACRUM AND COCCYX Stat Exams 11/21/19 20:49 Taken Medication Summary Generic Name Dose Route Start Last Admin Trade Name Freq PRN Reason Stop Dose Admin Hydrocodone Bitart/Acetaminophen 1 tab 11/21/19 21:01 [place] 5/325 Mg PO 11/21/19 21:02 STAT ONE - Progress Progress: unchanged Progress Note: 11/21/19 21:02 Pelvic x-ray reveals no evidence of any acute fracture or dislocation. X-ray of the sacrum and coccyx reveals no acute fracture. Questionable chronic L5 mild subluxation. Counseled pt/family regarding: diagnosis, rad results - Departure Departure Disposition: Home Clinical Impression: Fall with injury, Contusion Condition: Stable Critical Care Time: No Referrals: MARIE UREÑA MD [Primary Care Provider] - [facility] [phone] Additional Instructions: Ambulate as tolerated. Ice pack to area 3 times a day for the next 48 hours. Follow-up at the [facility] orthopedic clinic if symptoms are persistent. Prescriptions: Hydrocodone/APAP 5/325 [[place] 5/325 mg] 1 each PO Q8H PRN PRN #6 tablet MDD 3 PRN Reason: Pain
[2019-11-21] MEDS ORDERED: NORCO 5/325 MG PO ONE ×2 (21:01→21:07)
[2019-11-21] MEDS ORDERED: NORCO 5/325 MG ONE ×2 (21:05→21:11)
[2019-11-21 21:15] VITALS: BP 165/77; PULSE 70; O2SAT 95
--- NOTE | 2019-11-22 08:41 | XRAY ---
Indication: Pain following fall. Comparison: None Single AP pelvis demonstrates osteopenia, moderate lower lumbar degenerative spondylosis, mild scattered vascular calcifications, and incompletely visualized 6 mm right renal calculus. No other bony, articular, or soft tissue abnormalities.
--- NOTE | 2019-11-22 08:43 | XRAY ---
Indication: Pain following fall. Comparison: None 3 view sacrum/coccyx demonstrates osteopenia, moderate lower lumbar degenerative spondylosis with 11 mm L4 spondylolisthesis, mild scattered vascular calcifications, and 6 mm right renal calculus. No other bony, articular, or soft tissue abnormalities.
== END 2019-11-21 21:26 | disposition home or self-care (01) ==
LOC: ED 19:13
DX: S30.0XXS Contusion of lower back and pelvis, sequela (principal); W19.XXXS Unspecified fall, sequela
CPT/HCPCS: 72170; 72220; 99283; A9270-GY